=== PATIENT | male | born 1935 | race Caucasian/White ===

== ENCOUNTER 2018-06-11 11:52 | Inpatient (IN) | payer OTHER ==
[2018-06-11] MEDS ORDERED: NS 1,000 ML IV ONE (12:03)
--- NOTE | 2018-06-11 12:07 | EDPHY ---
H & P Time Seen by Provider: 06/11/18 11:56 HPI/ROS: CHIEF COMPLAINT: Left hip pain HISTORY OF PRESENT ILLNESS: The patient is an 82-year-old man who denies having a significant past medical history or taking any medications. EMS was called because he had fallen behind the fabric store. When they arrived they could not find him but fire department found him several blocks away holding onto a fence post. He is complaining of left hip pain. He states that he landed on his left hip. Paramedics state that he was A&O x3 initially but then had a brief episode of confusion. This provoked them to attain glucose an EKG. EKG was reassuring but his glucose was over 400. Patient denies any history of diabetes. He is now A& O x3 again and has no complaints other than left hip pain. He did not hit his head. He has no headache or neck pain. Severity: Moderate Modifying factors: None REVIEW OF SYSTEMS: Constitutional: denies: chills, fever, recent illness, recent injury EENTM: denies: blurred vision, double vision, nose congestion Respiratory: denies: cough, shortness of breath Cardiac: denies: chest pain, irregular heart rate, lightheadedness, palpitations Gastrointestinal/Abdominal: denies: abdominal pain, diarrhea, nausea, vomiting, blood streaked stools Genitourinary: denies: dysuria, frequency, hematuria, pain Musculoskeletal: See HPI Skin: denies: lesions, rash, jaundice, bruising Neurological: denies: headache, numbness, paresthesia, tingling, dizziness, weakness Hematologic/Lymphatic: denies: blood clots, easy bleeding, easy bruising Immunologic/allergic: denies: HIV/AIDS, transplant 10 systems reviewed and negative except as noted EXAM: GENERAL: Well-appearing, well-nourished and in no acute distress. HEAD: Atraumatic, normocephalic. EYES: Pupils equal round and reactive to light, extraocular movements intact, sclera anicteric, conjunctiva are normal. ENT: TMs normal, nares patent, oropharynx clear without exudates. Moist mucous membranes. NECK: Normal range of motion, supple without lymphadenopathy or JVD. LUNGS: Breath sounds clear to auscultation bilaterally and equal. No wheezes rales or rhonchi. HEART: Regular rate and rhythm without murmurs, rubs or gallops. ABDOMEN: Soft, nontender, normoactive bowel sounds. No guarding, no rebound. No masses appreciated. BACK: No CVA tenderness, no spinal tenderness, step-offs or deformities EXTREMITIES: Left hip pain, no pain while lying in bed or with passive range of motion but will not bear weight at all on the left hip. NEUROLOGICAL: Cranial nerves II through XII grossly intact. Normal speech, unable to walk due to left hip pain. 5/5 strength, normal movement in all extremities, normal sensation, normal reflexes PSYCH: Normal mood, normal affect. SKIN: He does have abrasions to his left knee but normal range of motion and no tenderness or swelling. Source: Patient, EMS Exam Limitations: Clinical condition - Medical/Surgical History Hx Asthma: No Hx Chronic Respiratory Disease: No Hx Diabetes: No Hx Cardiac Disease: No Hx Renal Disease: No Hx Cirrhosis: No Hx Alcoholism: No Hx HIV/AIDS: No Hx Splenectomy or Spleen Trauma: No - Family History Significant Family History: No pertinent family hx - Social History Smoking Status: Never smoked Alcohol Use: None Drug Use: None Constitutional: Initial Vital Signs Temperature (C) 37.2 C 06/11/18 11:52 Heart Rate 106 H 06/11/18 11:52 Respiratory Rate 16 06/11/18 11:52 Blood Pressure 180/105 H 06/11/18 11:52 O2 Sat (%) 95 06/11/18 11:52 O2 Delivery Mode Room Air Allergies/Adverse Reactions: No Known Allergies Allergy (Verified 06/11/18 13:14) Home Medications: Medication Instructions Recorded NK [No Known Home Meds] 06/11/18 Medical Decision Making - Diagnostics EKG Interpretation: An EKG obtained and was read and documented in trace view. Please see trace view for full reading and report. Sinus tachycardia, no acute ischemic changes Imaging: Discussed imaging studies w/ orthopedically impaired teacher Radiologist ED Course/Re-evaluation: Patient has left femoral neck fracture. He seems more confused now than he was on arrival but is still able to answer most questions appropriately. Does not have any focal deficits in his face arms or legs as far sensation or movement. Head CT unremarkable. I have paged hospitalist service for admission Orthopedics for consultation. 12:50 p.m. discussed the case with Dr. Wilkes who will admit. Agrees with insulin bolus and recheck. 1:10 p.m. Discussed the case with Dr. Herndon who will consult. He has not eaten since breakfast. 115 spoke again with the patient. He is having significant difficulty with word finding cannot name a pen or the phone. He occasionally mumbles or speaks with word salad. I have activated stroke alert and will have Errol Hamilton evaluate and obtain CT and CT angio. 1:[address] Bowser the neurologist [facility]. He is evaluating the patient. He states the patient is not a tPA candidate because of his hip fracture. Recommend CT angio. 9:20 p.m. Discussed the imaging results with Dr. Bowser from [facility]. He agrees with admission here and surgery. He recommends MRI at some point. Differential Diagnosis: Partial list of the Differential diagnosis considered include but were not limited to; hip fracture, hyperglycemia, altered mental status, CVA and although unlikely based on the history and physical exam, I also considered infection, acute coronary disease, seizure. - Data Points Laboratory Results: Laboratory Results 06/11/18 12:00 06/11/18 12:00 Medications Given: Aspirin (Aspirin) 81 mg PO DAILY [facility] Stop: 12/08/18 16:59 Last Admin: 06/12/18 12:44 Dose: 81 mg Atorvastatin Calcium (Lipitor) 40 mg PO DAILY [facility] Stop: 12/09/18 08:59 Last Admin: 06/12/18 12:44 Dose: 40 mg Sodium Chloride (Ns) 1,000 mls @ 75 mls/hr IV CONT [facility] Stop: 12/08/18 13:59 Last Admin: 06/11/18 21:55 Dose: 1,000 mls Insulin Human Regular (Humulin R) 0 unit SC Q6H [facility] PRN Reason: Protocol Stop: 12/08/18 15:14 Last Admin: 06/12/18 14:11 Dose: 3 units Discontinued Medications Bupivacaine HCl (Sensorcaine 0.5% Vial) Confirm Administered Dose 30 ml .ROUTE .STK-MED ONE Stop: 06/11/18 17:48 Last Admin: 06/11/18 20:09 Dose: Not Given Bupivacaine HCl (Sensorcaine 0.5% Vial) Confirm Administered Dose 30 ml .ROUTE .STK-MED ONE Stop: 06/12/18 11:31 Last Admin: 06/12/18 12:44 Dose: Not Given Epinephrine HCl (Epinephrine) Confirm Administered Dose 1 mg .ROUTE .STK-MED ONE Stop: 06/11/18 17:48 Last Admin: 06/11/18 20:09 Dose: Not Given Epinephrine HCl (Epinephrine) Confirm Administered Dose 1 mg .ROUTE .STK-MED ONE Stop: 06/12/18 11:31 Last Admin: 06/12/18 12:45 Dose: Not Given Sodium Chloride (Ns) 1,000 mls @ 0 mls/hr IV EDNOW ONE; Wide Open PRN Reason: Protocol Stop: 06/11/18 12:04 Last Admin: 06/11/18 12:06 Dose: 1,000 mls Lactated Ringer's (Lr) 1,000 mls @ 0 mls/hr IV ONCE ONE PRN Reason: Per Protocol Stop: 06/11/18 17:10 Last Admin: 06/11/18 20:10 Dose: Not Given Lactated Ringer's (Lr) 1,000 mls @ 0 mls/hr IV ONCE ONE PRN Reason: As Directed Stop: 06/12/18 10:41 Last Admin: 06/12/18 10:52 Dose: 1,000 mls Insulin Human Regular (Humulin R) 10 unit IVP EDNOW ONE Stop: 06/11/18 12:42 Last Admin: 06/11/18 12:50 Dose: 10 unit Point of Care Test Results: Chemistry 06/11/18 06/11/18 13:55 12:45 POC Glucose 242 mg/dL H mg/dL (70-100) POC Troponin I 0.00 ng/mL ng/mL (0.00-0.08) Departure - Departure Disposition: [facility] Inpatient Acute Clinical Impression: Hyperglycemia Fracture of left hip Qualifiers: Encounter type: initial encounter Fracture type: closed Qualified Code(s): S72.002A - Fracture of unspecified part of neck of left femur, initial encounter for closed fracture Condition: Fair
[2018-06-11 12:12] LABS: PLATELET COUNT 280 10^3/uL (150-400)
[2018-06-11] MEDS ORDERED: INSULIN REGULAR HUMAN 100 UNIT/ML UNIT IVP ONE (12:41)
--- NOTE | 2018-06-11 12:50 | CPEKG ---
Test Reason : OPEN Blood Pressure : / mmHG Vent. Rate : 110 BPM Atrial Rate : 110 BPM P-R Int : 210 ms QRS Dur : 085 ms QT Int : 319 ms P-R-T Axes : 047 -66 024 degrees QTc Int : 432 ms Sinus tachycardia Borderline prolonged MA interval Confirmed by Jimmie Ward ([id number]) on 06/11/2018 12:49:46 PM Referred By: Jimmie Ward Confirmed By:Jimmie Ward
[2018-06-11] MEDS ORDERED: IOPAMIDOL (ISOVUE-370) 150 ML BTL IV ONE (13:16)
[2018-06-11 13:32] LABS: INR 1.02 (0.83-1.16)
[2018-06-11] MEDS ORDERED: ONDANSETRON 4 MG/2 ML VIAL IVP PRN (13:57)
[2018-06-11] MEDS ORDERED: HYDROCODONE/APAP 5/325 TAB PO PRN (13:57)
[2018-06-11] MEDS ORDERED: D50W 25 GM/50 ML SYR IVP PRN (15:06)
--- NOTE | 2018-06-11 15:48 | WOCRNPDOC ---
WOCRN Advanced Assessment Note - Skin Integrity Problem, Advanced Assess Right Knee Unknown Dressing Type: Open to Air Alessia Wound Tissue: Dry Wound Bed Constitution: Scab, Healed Site Measurement - Head-to-Toe Length X Width X Depth (cm): [id number] scab Skin Integrity Problem Comment: Old wound with thick scab partially seperating from underlying healed epithelium. Will reccommend to soften with wound gel and cover to protect. Damari CROCKER and LAURA Woodruff in room. Wound care will sign off.
[2018-06-11] MEDS: INSULIN REGULAR HUMAN 100 UNIT/ML UNIT SC SCH ×2 (16:38→21:45)
--- NOTE | 2018-06-11 16:55 | GHP ---
[f rep st] HISTORY AND PHYSICAL DATE OF ADMISSION: 06/11/2018 CHIEF COMPLAINT: Fall and left femoral neck fracture. HISTORY OF PRESENT ILLNESS: The patient is an 82-year-old gentleman with no known past medical histo ry, who presented to the [facility] Emergency Room on 06/11/2018, after EMS had been activated to evaluate him after he fell behind a local fabrics store. When brought to the emergency room, he had an x-ray which showed evidence of a left hip fracture. Orthopedic Surgery was consulted . While in the emergency room, he developed difficulty with word finding and word salad. A stroke a lert was activated and [facility] consulted. He had a CT scan of his head and CT angiography of the head and neck performed. These did not show any evidence of an acute stroke or hemorrhage. TPA was not administered, as he was not felt to be a candidate secondary to his hip fracture. PAST MEDICAL HISTORY: No known past medical history. PAST SURGICAL HISTORY: No known prior surgeries. MEDICATIONS: No known current medications. ALLERGIES: No known drug allergies. FAMILY HISTORY: The patient states his mother and father are both and states that they of old age. SOCIAL HISTORY: The patient is apparently single. He tells me that he has never been and swanson s no children. He is a nonsmoker and apparently lives alone. REVIEW OF SYSTEMS: An accurate review of systems is unable to be obtained from patient considering n eurologic changes. PHYSICAL EXAM: VITAL SIGNS: Temperature 37.2, blood pressure 174/85, heart rate 102, respirations 1 6, satting 94% on room air. GENERAL: The patient appears comfortable without any significant pain. He does not appear chronically ill. HEENT: Left gaze preference. No scleral icterus appreciated. Dry mucous membranes. NECK: Supple. No bruit noted. CHEST: Clear to auscultation with normal re spiratory effort. No productive cough noted. HEART: Systolic ejection murmur right upper sternal b order; regular otherwise. ABDOMEN: Soft, nontender, nondistended. : No Pinon catheter in place. EXTREMITIES: No significant edema noted. NEUROLOGIC: I suspect he has a mild right facial droop with left gaze preference. Right upper extremity strength 5/5 and seems equal as compared to the lef t. Difficult to assess lower extremity strength secondary to fracture on the left, but he does have good movement of his right lower extremity. I would describe his speech as word salad with occasiona l clear sentences spoken. LABS: White blood cell count 11, hemoglobin 14, platelets 280. Sodium 132, potassium 4.3, chloride 96, bicarb 19, BUN 18, creatinine of 0.8, glucose 482, calcium 9.8. Troponin 0.00. IMAGING: Left hip x-ray, displaced impacted left femoral neck fracture. CT scan head, no acute intr acranial findings. CT, moderate 60% to 70% focal stenosis of the proximal right internal carotid artery, 1.6 cm right th yroid nodule noted. ASSESSMENT AND PLAN: Left femoral neck fracture: Orthopedic Surgery has been consulted on the case. In regard to proceeding to the operating room, his ECG shows sinus tachycardia at a rate of 110 sarwat ts per minute. His hemoglobin and creatinine are within normal limits. I recommend and have ordered an MRI of his brain, as he certainly has neurologic findings which could be suggestive of an acute s troke. Left hip pain. This appears well controlled at the current time without any significant movement. Cerebrovascular accident. Possibly acute cerebrovascular accident [facility] has consulted o n the patient's case in the emergency room and not felt to be a tPA candidate secondary to his acute hip fracture. Await MRI report for further clarification and likely Neurology consult. Carotid artery stenosis, 60% to 70% stenosis of the proximal left internal carotid artery. We will s tart aspirin and statin therapy. This may need further intervention pending MRI results. Thyroid nodule. I think this workup can be deferred to the outpatient setting. Leukocytosis, likely reactive. Monitor for fevers. No antibiotic therapy at this time. Elevated glucose. Obtain hemoglobin A1c to assess for evidence of glucose intolerance or type 2 diab etes. Deep venous thrombosis prophylaxis. We will plan on Lovenox, but we will not start until MRI has bee n completed and plan for surgery has been confirmed. DISPOSITION: I anticipate patient will likely need jail placement once ready for hospital discharge. I will admit the patient under inpatient status. /[id number]/MODL
[2018-06-11] MEDS ORDERED: LR 1,000 ML IV ONE (17:09)
[2018-06-11] MEDS ORDERED: EPINEPHrine 1 MG/ML INJ ONE (17:47)
[2018-06-11] MEDS ORDERED: BUPIVACAINE 0.5% 30 ML SDV ONE (17:47)
[2018-06-11] MEDS: ASPIRIN 81 MG CHEWABLE TAB PO SCH (20:09)
[2018-06-11] MEDS: NS 1,000 ML IV SCH (21:55)
--- NOTE | 2018-06-11 22:03 | PDMN ---
Medical Necessity Medical necessity: Pt meets inpt criteria per MD order and Musculoskeletal Disease GRG. 82 y/o s/p fall admitted w/displaced impacted L femoral neck fx, in ED pt developed difficulty w/word finding/word salad, stroke alert activated and neurology consulted, CT did not show evidence of acute stoke or hemorrhage. Ortho consulted and following, MRI brain pending, neuro following, Anticipate > 2MN for ongoing eval/management of above.
[2018-06-12 05:05] LABS: PLATELET COUNT 216 10^3/uL (150-400)
[2018-06-12] MEDS: INSULIN REGULAR HUMAN 100 UNIT/ML UNIT SC SCH ×5 (05:47→21:21)
--- NOTE | 2018-06-12 10:27 | GCON ---
[f rep st] CONSULTATION DATE OF CONSULTATION: 06/11/2018 REASON FOR CONSULTATION: Left hip pain. HISTORY OF PRESENT ILLNESS: The patient is an 82-year-old limited community ambulator who sustained a fall, landing on his left hip. He noted left hip pain with difficulty ambulating. He denies any p revious problems or injuries relative to his hip. EXAMINATION: MUSCULOSKELETAL: He holds his hip in a slightly flexed outwardly rotated position. He has mild limb length discrepancy. Gentle motion of the hip produces pain in the groin region. His distal neurovascular exam is grossly intact. IMAGING: Radiographs of his hip show evidence of a displaced left femoral neck fracture. IMPRESSION: Left femoral neck fracture. PLAN: Based on the nature of his injury, it was recommended that operative treatment consisting of i mplant hemiarthroplasty be pursued. The operation will be performed pending medical clearance. /[id number]/MODL
[2018-06-12] MEDS ORDERED: LR 1,000 ML IV ONE (10:40)
[2018-06-12] MEDS ORDERED: EPINEPHrine 1 MG/ML INJ ONE (11:30)
[2018-06-12] MEDS ORDERED: BUPIVACAINE 0.5% 30 ML SDV ONE (11:30)
[2018-06-12] MEDS: ASPIRIN 81 MG CHEWABLE TAB PO SCH (12:44)
[2018-06-12] MEDS: ATORVASTATIN CALCIUM 40 MG TAB PO SCH (12:44)
--- NOTE | 2018-06-12 13:53 | GCON ---
[f rep st] CONSULTATION NEUROLOGIC CONSULTATION REFERRING PHYSICIAN: Alex Castro MD The patient is an 82-year-old gentleman who I am seeing in neurologic consultation regarding acute st roke. 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 He had reportedly gone in and left the keys in the door and either fell there or fell outside, and that is not entirely clear, but 911 was called when the employees recognized something was not right. He reportedly then was grabbi ng onto a pole to keep his balance and had fallen and fractured the left hip and was also noted to swanson ve some left gaze preference and some right-side weakness and a little bit of confusion. He had a he ad CT and stroke alert, with CTA of the head and neck and was found to have estimated 60% to 70% sten osis of the left internal carotid artery, but no large vessel occlusions. Because of the acute hip f racture, he was not felt to be a tPA candidate. Brain MRI confirms ischemia in left middle cerebral and left posterior MCA, LOOM STARTER watershed territory. He does need to have the hip fracture operated on, but I asked them to put that on hold until he has a chance to stabilize for at least a day or so. The patient does not really give a reliable history about exactly what happened. He knows he had ventura e to the store, but his details are incorrect. He has never had similar episodes before. He is deny ing focal numbness. He says he is not currently in any pain as long as he does not move the left hip significantly. From a medical standpoint otherwise, he is not known to have specific disorder. ALLERGIES: None. FAMILY HISTORY: Unknown. SOCIAL HISTORY: He apparently lives here, and there are family members out of state, but no first-de gree relatives except sisters apparently. No children and no spouse in his life. No smoking. We do not know of any alcohol abuse. REVIEW OF SYSTEMS: The 10-point review of systems unremarkable except for that noted above. PHYSICAL EXAM: VITAL SIGNS: Blood pressure is 143/83, pulse of 85, respirations 16, temperature 37. 3. GENERAL: Well developed, no acute distress. NECK: Supple. No bruits or masses. CARDIAC: Reg ular rate and rhythm. No murmur. NEUROLOGIC: Awake, alert, attentive. He is oriented to the month but had trouble coming up with the year. He knows he is in [place], [place]. He has a slightly pe culiar affect and tries to make jokes. He can generally name objects but a couple of times made para phasic errors such as calling initially my watch a clock. He can spell and perform simple calculatio ns. Pupils 3 mm and reactive. I do not detect any visual field loss. There is no gaze preference a t this point. Normal facial sensation and strength. Palate elevates symmetrically. Tongue protrude s midline. Motor: Normal muscle bulk and tone, with 5/5 strength. I cannot test the left leg relia patricia because that is where the fracture is. Distal strength is preserved. Sensation is intact for te mperature and light touch. Reflexes 2+. DIAGNOSTIC IMAGING: As outlined. LABORATORY STUDIES: Showed a glucose today of 209. It was 42 when he came in. He is not known to b e diabetic, but he has had consistently high blood sugars since coming in the hospital. The bicarbon ate when he came in was 17, currently 25. Otherwise normal electrolytes. The LDL cholesterol is cur rently at 85. INR normal. The NIH Stroke Scale currently would be listed as a 1 for mild expressive language problem. IMPRESSION: Today's total unit time 70 minutes. The patient has experienced a left middle cerebral/ middle cerebral territory watershed infarct related to significant left carotid stenosis which is sym ptomatic. As a result, he needs to be stable over the next 24-48 hours before I would recommend mehran crockett the treatment of the left hip fracture. He can take aspirin for now, and Orthopedics can guide us on the timing for stopping aspirin prior to his surgery. I will consult with Dr. Terrence Krueger as t his carotid should be treated with endarterectomy, ideally in about the next 2 weeks. There is not a definitive answer on safety of surgery in a case like this, but this degree of stenosis that is mode rate as opposed to severe probably does not give an undue risk of stroke in the setting of routine an esthesia. We can confer on that further. Statin therapy is indicated for secondary stroke prophylax is although his LDL is less than 100. We can initiate that prior to discharge from the hospital. He should also have echocardiogram. Continue to monitor his neurologic status for any changes. The tunde farrell will definitely need rehab care once his hip fracture is treated and further monitoring of stro ke deficits. /[id number]/MODL
--- NOTE | 2018-06-12 15:52 | ECHO ---
[email or web address] [address] [address] Main: [phone] Echocardiography Examination Transthoracic Name: JOSE L SHELTON MR#: [id number] Study Date: 06/12/2018 Study Time: 01:16 PM Date of : 1935 Age: 82 year(s) Height: 175.3 cm (69 in.) Weight: 72.58 kg (160 lb.) BSA: 1.88 m2 Gender: Male Examination: Echo Contrast: Image Quality: Fair Rhythm: Heart Rate: BP: 143 mmHg/83 mmHg Indication: CVA/fractured left hip Procedure Staff Referring Physician: Health Physics Technician: Yarely De Souza RDCS Reading Physician: Lucas Guerrero MD Requesting Provider: Indication: CVA/fractured left hip Measurements Chambers AV/MV Label Value Normal Value Label Value Normal Value EF lower range (%) 65 % AV PGmean 3 mmHg EF upper range (%) 70 % AV Vmax 1.1 m/s IVSd, 2D 0.6 cm (0.6cm - 1.1cm) MV A Vmax 1.07 m/s LVDd, 2D 5 cm (4.2cm - 5.9cm) MV E' lateral 0.07 m/s LVDs, 2D 2.5 cm (2.1cm - 4cm) MV E' mean 0.06 m/s LVEF, 2D 81 % (54% - 74%) MV E' septal 0.06 m/s LVEF, BP 63 % (55% - 70%) MV E Vmax 0.78 m/s LVPWd, 2D 0.8 cm (0.6cm - 1cm) MV E/A 0.73 LA Volume, BP 28 ml (18ml - 58ml) MV E/E' lateral 11.8 LADs, 2D 2.9 cm (3cm - 4cm) MV E/E' mean 12 LAESV index, BP 14.9 ml/m2 MV E/E' septal 12.5 (0.45 - 1.25) Additional Vessels TV/PV Label Value Normal Value Label Value Normal Value AoAsc 3.4 cm RA Pressure 5 mmHg AoRoot, MM 3.4 cm (2.2cm - 3.7cm) RVSP 27 mmHg TR Pmax 22 mmHg TR Vmax 2.33 m/s Conclusions Patient: JOSE L SHELTON Study Date: 06/12/2018 Page 1 of 2 01:16 PM Overall Conclusions: No pericardial effusion. Preserved LV systolic function with ejection fraction between 65 and 70%. Mild concentric left ventricular hypertrophy. Mild mitral annular calcification with mild mitral regurgitation. Trileaflet aortic valve. Mild tricuspid regurgitation with right ventricular systolic pressure 27 mm of mercury. Findings Left Ventricle: Left ventricle is normal in size. Normal global systolic left ventricular function. The ejection fraction, measured by Simpsons method, is 63 %. EF range is estimated at 65 % - 70 %. There is mild concentric left ventricular hypertrophy. There are no regional wall motion abnormalities. Left ventricular diastolic function parameters are normal. IVS: The septum is intact. Right Ventricle: Normal size right ventricle. Right ventricular wall thickness is normal. Right ventricular systolic function is normal. Left Atrium: The left atrium is normal in size. IAS: Normal appearing atrial septum. Right Atrium: The right atrium is normal in size. Mitral Valve: Mild mitral annular calcification.. Trivial to mild mitral regurgitation. No mitral valve stenosis. Aortic Valve: Aortic leaflets exhibit normal cuspal separation. No aortic valve regurgitation. There is no aortic stenosis. The aortic valve is trileaflet. Tricuspid Valve: Tricuspid valve leaflets are normal in appearance and function. Mild tricuspid regurgitation. No tricuspid valve stenosis. Right Ventricular systolic pressure is measured at 27 mmHg. Pulmonary artery pressure normal. Pulmonic Valve: Pulmonic leaflets exhibit normal cuspal separation. No pulmonic valve regurgitation is evident. There is no pulmonic valve stenosis. Aorta: The aorta is normal. The aortic root size in M-mode measures 3.4 cm. The ascending aorta measures 3.4 cm. Aorta Measurements AoRoot, MM is 3.4 cm. Pulmonary Artery: The pulmonary artery morphology appears normal. Pericardium: No pericardial effusion. No pleural effusion present. Exam Details Procedure Ordered: Echo Procedure Status: Routine study Image Quality: Fair Facility Location: Cardiac Echo 1 (No Signature Object) Patient: JOSE L SHELTON Study Date: 06/12/2018 Page 2 of 2 01:16 PM [id number]
--- NOTE | 2018-06-12 16:20 | HOSPPROG ---
Hospitalist Progress Note Assessment/Plan: Subjective Follow-up on left hip fracture and acute left-sided MCA CVA. On MRI late last evening patient was found to have evidence of an acute CVA in the left MCA territory. CT angiography of the neck also revealed a 60 the 70% stenosis. Case was reviewed today with Dr. Ron as well as anesthesiology and Dr. Herndon. Ultimately it was decided to delay his hip surgery in light of the acute findings until . Clinically the patient did well overnight. His neurologic findings from yesterday including left gaze preference and word salad appear to have resolved. I did talk with his sister, Yelena, who lives in [place] and updated her on the current plan. Objective Vital signs as detailed below Exam General-awake alert conversant no acute distress Heart-regular rate and rhythm no murmurs Lungs-Clear to auscultation with normal respiratory effort Abdomen-soft nontender nondistended normal bowel sounds -no Pinon catheter in place Extremities-no significant pitting edema or calf pain with palpation Skin-he has a chronic appearing sebaceous cyst like lesion as his lower sternum Neuro-diminished facial droop of the right as compared to yesterday's exam, speech is fluent without any word salad as noted yesterday, patient engages eye contact with me which he did not do yesterday showing a left gaze preference. I suspect he might have a little less strength and right upper extremity as compared to the left but not significant. Strength of right lower extremity appears normal. Left leg not tested in light of fracture. Labs as detailed below Assessment and plan CVA-acute. Left MCA distribution. Tele neurology was consulted in the emergency room patient was not felt to be a tPA candidate secondary to concurrent left hip fracture. Dr. Ron has consulted on the case today as well. Aspirin and statin therapy started. The left-sided carotid artery stenosis discussed with Dr. Ron today and he will correspond with Dr. Krueger to discuss further. Left hip fracture-I talked with anesthesia as well as Dr. Herndon today and recommended that we plan on for surgery. Dr. Herndon stated that he will pass the case over to his partner, Dr. Naik. Left hip pain-pain appears well controlled with current regimen and place. Patient does not appear to be having any pain as long as he does not move. Carotid artery [id number]-[id number]. Estimated at 60-70%. Thyroid nodule-I would recommend working this up as an outpatient after hospital discharge. Leukocytosis-mild. Potentially stress response. Monitor for any fevers. Elevated glucose-likely type 2 diabetic that has been undiagnosed. Hemoglobin A1c currently pending. Continue with sliding scale insulin for now. DVT prophylaxis-Lovenox. Disposition-we will need to see how he does with physical therapy and occupational therapy a after his surgery in determining safe place of discharge. His sister states that he has lived in [place] for many years. He is not and has no children. She does not believe that he has had any medical attention here in town. She does not believe he has a physician here either. Objective: Vital Signs Temp Pulse Resp BP Pulse Ox 36.7 C 82 14 136/78 H 94 06/12/18 15:29 06/12/18 15:29 06/12/18 15:29 06/12/18 15:29 06/12/18 15:29 Laboratory Results 06/12/18 04:39 06/12/18 04:39 06/11/18 06/12/18 06/13/18 05:59 05:59 05:59 Intake Total 200 Output Total 350 1125 Balance -150 -1125 PT 13.0 SEC (12.0-15.0) 06/11/18 12:00 INR 1.02 (0.83-1.16) 06/11/18 12:00 ICD10 Worksheet Patient Problems: Problems Problem Status Onset Carotid stenosis, left Acute Fracture of left hip Acute Hyperglycemia 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
--- NOTE | 2018-06-12 16:22 | ASMTCMCOM ---
CM Note CM Note Notes: Pt was found down in [place], has hip fx. Pt came in very confused, pt current 1:1 with sitter, OT/PT recs pending. 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 FC was able to find out pt has Medicare. Nursing note lists pt sister's contact information, they both reside out of state. CM to follow pt for d/c planning. Date Signed: 06/12/2018 04:22 PM Electronically Signed By:LILIYA Willis
--- NOTE | 2018-06-12 18:44 | GCON ---
[f rep st] CONSULTATION DATE OF CONSULTATION: 06/12/2018 HISTORY OF PRESENT ILLNESS: Patient is an 82-year-old male who was admitted after a mild stroke caus ing him to fall and break his left hip. He is under evaluation for a left hip ORIF. MRI of his brai n shows a small acute infarct. CTA reveals a 70% stenosis of the left carotid artery. The right car otid artery was quite patent. I was consulted for evaluation for carotid endarterectomy. Risks and options have been fully discussed. The patient is recovering well from his stroke and has no residua l muscular weakness or problems, except as related to his hip fracture. ALLERGIES: None. FAMILY HISTORY: Noncontributory. SOCIAL HISTORY: Reveals he does not smoke. He does appear to live alone. PAST MEDICAL HISTORY: Denied any major past medical history or surgeries. REVIEW OF SYSTEMS: Negative on a full 10-point review, except as related to the HPI. PHYSICAL EXAM: GENERAL: Reveals an alert, cooperative 82-year-old male in no acute distress. HEAD/ NECK: Reveals no icterus. No adenopathy. No oral lesions. EYES: PERRLA, EOMs are intact. NECK: Supple. Full range of motion, nontender. He has a left carotid bruit. No significant adenopathy. CHEST: Clear. CARDIAC: Regular rhythm. ABDOMEN: Soft, nontender, without masses, organomegaly, or bruits. EXTREMITIES: Benign with full range of motion, full pulses. NEUROLOGIC: Physiologic and symmetric except as related to his left hip fracture. PSYCH: Reveals him to be alert, oriented, an d cooperative. IMPRESSIONS: Critical left carotid stenosis with recent cerebrovascular accident. RECOMMENDATIONS: Would proceed with hip fracture repair and plan elective carotid endarterectomy in the next 1 to 3 weeks depending on his recovery. In the meantime, I would keep him on Lipitor and a baby aspirin. The risks and options have been fully discussed, and he wishes to proceed. /[id number]/MODL
[2018-06-13 05:14] LABS: PLATELET COUNT 201 10^3/uL (150-400)
[2018-06-13] MEDS: ATORVASTATIN CALCIUM 40 MG TAB PO SCH (08:28)
[2018-06-13] MEDS: INSULIN REGULAR HUMAN 100 UNIT/ML UNIT SC SCH ×4 (08:28→21:49)
[2018-06-13] MEDS: ASPIRIN 81 MG CHEWABLE TAB PO SCH (08:28)
--- NOTE | 2018-06-13 08:44 | HOSPPROG ---
Hospitalist Progress Note Assessment/Plan: Mr Dugan is an 82 yo male who presented after falling and sustaining a hip fx. while in the ER he developed difficulty w word finding and word salad. [facility] was called, and not TPA was ordered due to his hip fx. Reviewed his care W Dr Ron. First encounter, chart reviewed. *CVA-acute. Left MCA distribution -asa and statin -tele has been in sinus *Left hip fracture -surgery *Left hip pain -well managed *Carotid artery pauxpbol-znlt-bzoig, 70% -reviewed Dr Krueger note, surgery in a few weeks after patient recovers from hip surgery *Thyroid nodule -needs further evaluation in the OP setting- *newly diagnosed DM -A1c is 11 -on sliding scale -added Lantus * mild Leukocytosis-mild -stress response *plan: surgery tomorrow, Karlos is very hopeful and positive about surgery. Will need to be closely monitored after surgery. Subjective: Karlos said he feels fine. No c/o chest pain. Objective: Vital Signs Temp Pulse Resp BP Pulse Ox 36.9 C 90 18 130/69 H 92 06/13/18 07:28 06/13/18 07:28 06/13/18 07:28 06/13/18 07:28 06/13/18 07:28 Laboratory Results 06/13/18 04:54 06/13/18 04:54 06/12/18 06/13/18 06/14/18 05:59 05:59 05:59 Intake Total 200 840 Output Total 350 1575 Balance -150 -735 PT 13.0 SEC (12.0-15.0) 06/11/18 12:00 INR 1.02 (0.83-1.16) 06/11/18 12:00 - Physical Exam Constitutional: no apparent distress, appears nourished, not in pain Eyes: PERRL Ears, Nose, Mouth, Throat: hearing normal Cardiovascular: regular rate and rhythym, systolic murmur Respiratory: no respiratory distress Skin: warm Musculoskeletal: other (left leg shortened and internally rotated) Neurologic: AAOx3, sensation intact bilaterally, No numbness, No facial droop Psychiatric: interacting appropriately ICD10 Worksheet Patient Problems: Problems Problem Status Onset Carotid stenosis, left Acute Fracture of left hip Acute Hyperglycemia 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
--- NOTE | 2018-06-13 14:12 | SOAPPROG ---
SOARPIT Progress Note Assessment/Plan: 82 yo female w/ left femoral neck fracture, to undergo left hip hemiarthroplasty on 06/14/[address] haider -no change in restrictions -nwb lle -npo at midnight for right hip hemiarthroplsty by -management per medical team (primary) - Subjective: denies any issues, reports pain is well controlled on meds, waiting for surgery , denies any problems voiding/moving bowels denies fevers/chills Objective: Vital Signs Temp Pulse Resp BP Pulse Ox 36.2 C 93 16 134/88 H 95 06/13/18 11:33 06/13/18 11:33 06/13/18 11:33 06/13/18 11:33 06/13/18 11:33 Laboratory Results 06/13/18 04:54 06/13/18 04:54 06/12/18 06/13/18 06/14/18 05:59 05:59 05:59 Intake Total 200 840 500 Output Total 350 1575 300 Balance -150 -735 200 PT 13.0 SEC (12.0-15.0) 06/11/18 12:00 INR 1.02 (0.83-1.16) 06/11/18 12:00 ICD10 Worksheet Patient Problems: Problems Problem Status Onset Carotid stenosis, left Acute Fracture of left hip Acute Hyperglycemia 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
[2018-06-13] MEDS: INSULIN GLARGINE 100 UNITS/ML UNIT SC SCH (22:29)
[2018-06-14] MEDS ORDERED: POVIDONE-IODINE 20 ML in SODIUM CL IRRIG SOLUTION 500 ML IRR ONE (06:59)
[2018-06-14] MEDS ORDERED: ROPIVACAINE 0.2% 80 MG, EPINEPHrine 0.2 MG, KETOROLAC TROMETHAMINE 30 MG in SYRINGE 0 ML IU ONE (06:59)
[2018-06-14] MEDS ORDERED: FAMOTIDINE 20 MG TAB PO ONE (06:59)
[2018-06-14] MEDS ORDERED: ceFAZolin 2 GM/DEXTROSE 100 ML IV ONE (06:59)
[2018-06-14] MEDS ORDERED: TRANEXAMIC ACID 3,000 MG in NS (SYRINGE) 50 ML IRR ONE (06:59)
[2018-06-14] MEDS: INSULIN REGULAR HUMAN 100 UNIT/ML UNIT SC SCH ×4 (08:30→21:14)
--- NOTE | 2018-06-14 09:17 | CPEKG ---
Test Reason : Blood Pressure : / mmHG Vent. Rate : 107 BPM Atrial Rate : 107 BPM P-R Int : 208 ms QRS Dur : 094 ms QT Int : 336 ms P-R-T Axes : 056 -53 034 degrees QTc Int : 449 ms Sinus tachycardia Borderline prolonged AL interval Probable left atrial enlargement Left anterior fascicular block Confirmed by Ladarius York ([id number]) on 06/14/2018 9:16:42 AM Referred By: Laci Wilkes Confirmed By:Ladarius York
--- NOTE | 2018-06-14 09:20 | HOSPPROG ---
Hospitalist Progress Note Assessment/Plan: Mr Dugan is an 82 yo male who presented after falling and sustaining a hip fx. while in the ER he developed difficulty w word finding and word salad. [facility] was called, and not TPA was ordered due to his hip fx. *CVA-acute. Left MCA distribution -asa and statin -tele has been in sinus *Left hip fracture -surgery today -will add fluids since NPO *Left hip pain -well managed *Carotid artery qcxucqsg-uipo-apkjv, 70% -reviewed Dr Krueger note, surgery in a few weeks after patient recovers from hip surgery *Thyroid nodule -needs further evaluation in the OP setting- *newly diagnosed DM -A1c is 11 -on sliding scale -added Lantus * mild Leukocytosis-mild -stress response *plan: surgery today, repeat labs in a.m. Subjective: Karlos is feeling well, no c/o pain, feels ready for surgery Objective: Vital Signs Temp Pulse Resp BP Pulse Ox 36.8 C 90 12 110/65 95 06/14/18 07:31 06/14/18 07:31 06/14/18 07:31 06/14/18 07:31 06/14/18 07:31 Laboratory Results 06/13/18 04:54 06/13/18 04:54 06/13/18 06/14/18 06/15/18 05:59 05:59 05:59 Intake Total 840 500 Output Total 1575 1425 Balance -735 -925 PT 13.0 SEC (12.0-15.0) 06/11/18 12:00 INR 1.02 (0.83-1.16) 06/11/18 12:00 - Physical Exam Constitutional: no apparent distress, appears nourished Eyes: PERRL Ears, Nose, Mouth, Throat: hearing normal Cardiovascular: regular rate and rhythym Respiratory: no respiratory distress Gastrointestinal: normoactive bowel sounds Skin: warm Musculoskeletal: other (left leg straightened out and he is lying on his right side) Neurologic: AAOx3 Psychiatric: interacting appropriately ICD10 Worksheet Patient Problems: Problems Problem Status Onset Carotid stenosis, left Acute Fracture of left hip Acute Hyperglycemia 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
[2018-06-14] MEDS ORDERED: LR 1,000 ML IV SCH (09:30)
[2018-06-14] MEDS: ATORVASTATIN CALCIUM 40 MG TAB PO SCH (10:55)
[2018-06-14] MEDS: NS 1,000 ML IV SCH (10:56)
[2018-06-14] MEDS: ASPIRIN 81 MG CHEWABLE TAB PO SCH (11:37)
--- NOTE | 2018-06-14 12:44 | PDANEPAE ---
ANE Past Medical History - Cardiovascular History Hx Hypertension: No Hx Arrhythmias: No Hx Chest Pain: No Hx Coronary Artery / Peripheral Vascular Disease: No Hx CHF / Valvular Disease: No Hx Palpitations: No - Pulmonary History Hx COPD: No Hx Asthma/Reactive Airway Disease: No Hx Recent Upper Respiratory Infection: No Hx Oxygen in Use at Home: No Hx Sleep Apnea: No Sleep Apnea Screening Result - Last Documented: Positive - Neurologic History Hx Cerebrovascular Accident: Yes Hx Seizures: No Hx Dementia: No Neurologic History Comment: CVA vs TIA/RIND - Endocrine History Hx Diabetes: Yes Hypothyroid: No Hyperthyroid: No Obesity: no - Renal History Hx Renal Disorders: No - GI History GERD: no Hx Gastrointestinal Disorders: No - Other Health History Other Health History: chest wall abscess ANE Review of Systems Review of Systems: - Exercise capacity Exercise capacity: >=4 METS ANE Patient History - Allergies Allergies/Adverse Reactions: No Known Allergies Allergy (Verified 06/11/18 13:14) - Home Medications Home Medications: NK [No Known Home Meds] 06/11/18 [Last Taken Unknown] - NPO status NPO Since - Liquids (Date): 06/14/18 NPO Since - Liquids (Time): 10:45 NPO Since - Solids (Date): 06/13/18 NPO Since - Solids (Time): 10:55 - Anes Hx Anes Hx: no prior problems - Smoking Hx Smoking Status: Never smoked - Alcohol Use Alcohol Use: None - Family Anes Hx Family Anes Hx: neg - N/A ANE Labs/Vital Signs - Labs Result Diagrams: 06/13/18 04:54 06/13/18 04:54 - Vital Signs Blood Pressure: 113/66 Heart Rate: 87 Respiratory Rate: 15 O2 Sat (%): 100 Height: 175.26 cm Weight: 72.575 kg ANE Physical Exam - Airway Neck exam: FROM Mallampati Score: Class 2 Mouth exam: normal dental/mouth exam - Pulmonary Pulmonary: no respiratory distress, no rales or rhonchi, clear to auscultation - Cardiovascular Cardiovascular: regular rate and rhythym, no murmur, rub, or gallop - ASA Status ASA Status: III ANE Anesthesia Plan Anesthesia Plan: MAC, spinal Total IV Anesthesia: No
[2018-06-14] MEDS ORDERED: LR 1,000 ML IV ONE (13:31)
[2018-06-14] MEDS ORDERED: BUPIVACAINE/EPI 0.5% 30 ML SDV ONE (13:33)
[2018-06-14] MEDS ORDERED: BUPIVACAINE 0.5% 30 ML SDV ONE ×2 (13:33→13:49)
[2018-06-14] MEDS ORDERED: POLYMYXIN B SULFATE 500,000 UNIT/10 ML SYR IRR ONE (13:34)
[2018-06-14] MEDS ORDERED: BACITRACIN 50,000 UNITS/10 ML SYR IRR ONE (13:34)
[2018-06-14] MEDS ORDERED: CEFAZOLIN 2 GM/DEXTROSE/100 ML BAG IV ONE (13:37)
[2018-06-14] MEDS ORDERED: FAMOTIDINE 20 MG TAB ONE (13:37)
[2018-06-14] MEDS ORDERED: PROPOFOL/EMULSION 500 MG/50 ML BOTTLE IV ONE (13:47)
[2018-06-14] MEDS ORDERED: fentaNYL 100 MCG/2 ML INJ ONE (13:47)
[2018-06-14] MEDS ORDERED: PHENYLEPHRINE HCL 100 MCG/ML SYR ONE (14:26)
[2018-06-14] MEDS ORDERED: ACETAMINOPHEN 500 MG TAB PO PRN (15:05)
[2018-06-14] MEDS ORDERED: ONDANSETRON 4 MG/2 ML VIAL IVP PRN (15:05)
[2018-06-14] MEDS ORDERED: NALOXONE HCL 0.4 MG/ML INJ IVP PRN (15:05)
[2018-06-14] MEDS ORDERED: HYDROCODONE/APAP 5/325 TAB PO PRN (15:05)
[2018-06-14] MEDS ORDERED: LR 500 ML IV PRN (15:05)
[2018-06-14] MEDS ORDERED: PHENYLEPHRINE HCL 100 MCG/ML SYR IVP PRN (15:05)
[2018-06-14] MEDS ORDERED: PROMETHAZINE HCL 25 MG/ML INJ IVP PRN (15:05)
--- NOTE | 2018-06-14 15:36 | POSTANESTH ---
Post Anesthetic Evaluation Cardiovascular Status: Normal, Stable Respiratory Status: Normal, Stable Level of Consciousness/Mental Status: Can Participate in Eval Pain Control: Adequate, Prn Tx Ordered Nausea/Vomiting Control: Adequate, Prn Tx Ordered Complications Possibly Related to Anesthesia: None Noted
--- NOTE | 2018-06-14 16:54 | ASMTCMCOM ---
CM Note CM Note Notes: Pt had surgery today, PT/OT evals pending, CM will follow. DC Plan: TBD Date Signed: 06/14/2018 04:53 PM Electronically Signed By:Parvin Beck RN
--- NOTE | 2018-06-14 17:09 | SOAPPROG ---
PRINCESS Progress Note Assessment/Plan: Assessment: DOING WELL TODAY FROM A NEUROLOGIC STANDPOINT. AGAIN DISCUSSED RISKS AND OPTIONS OF A CAROTID ENDARTERECTOMY IN 1-2 WEEKS ORIF OF HIS HIP PENDING TODAY HEENT NONICTERIC, PERRLA, EOMS INTACT CHEST CLEAR COR REGULAR RHYTHM ABDOMEN SOFT NONTENDER EXTREMITIES FULL RANGE OF MOTION FULL PULSES EXCEPT FOR HIS HIP FRACTURE NEURO EXAM PHYSIOLOGIC AND SYMMETRIC WITH CRANIAL NERVES INTACT Plan: PLAN CAROTID ENDARTERECTOMY IN 1-2 WEEKS DEPENDING ON HIS RECOVERY FROM HIP SURGERY 06/14/18 17:07 Objective: Vital Signs Temp Pulse Resp BP Pulse Ox 36.4 C 69 18 90/52 L 100 06/14/18 16:00 06/14/18 16:02 06/14/18 16:02 06/14/18 16:02 06/14/18 16:02 Laboratory Results 06/13/18 04:54 06/13/18 04:54 06/13/18 06/14/18 06/15/18 05:59 05:59 05:59 Intake Total 840 500 750 Output Total 1575 1425 65 Balance -735 -925 685 PT 13.0 SEC (12.0-15.0) 06/11/18 12:00 INR 1.02 (0.83-1.16) 06/11/18 12:00 ICD10 Worksheet Patient Problems: Problems Problem Status Onset Carotid stenosis, left Acute Fracture of left hip Acute Hyperglycemia 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
[2018-06-14] MEDS: INSULIN GLARGINE 100 UNITS/ML UNIT SC SCH (21:30)
[2018-06-15 05:15] LABS: PLATELET COUNT 192 10^3/uL (150-400)
--- NOTE | 2018-06-15 07:47 | POSTOPPROG ---
Post Op Note Date of Operation: 06/15/18 Surgeon: Puneet Naik Manager Business Intelligence: Rubio Anesthesiologist: Katharina Anesthesia: IV Sedation, Spinal Pre-op Diagnosis: Left femoral neck fracture Post-op Diagnosis: same Procedure: Left hip closed reduction percutaneous screw fixation Inf/Abcess present in the surg proc area at time of surgery?: No EBL: Minimal
--- NOTE | 2018-06-15 07:48 | SOAPPROG ---
SOAP Progress Note Assessment/Plan: Assessment: 82-year-old male with multiple medical problems including acute CVA , undiagnosed and uncontrolled diabetes, chest abscess, femoral neck fracture postop day 1 status post percutaneous screw fixation Plan: 20 lb foot flat weight-bearing with walker and physical therapy DVT prophylaxis: As per primary and neurology Will require subacute rehab Disposition: Pending 06/15/18 07:48 Subjective: No acute events. Pain well controlled. Denies fevers chills nausea vomitting chest pain shortness of breath numbness or tingling. Objective: Vital Signs Temp Pulse Resp BP Pulse Ox 36.9 C 71 15 120/67 96 06/15/18 07:42 06/15/18 07:42 06/15/18 07:42 06/15/18 07:42 06/15/18 07:42 Laboratory Results 06/15/18 04:45 06/15/18 04:45 06/14/18 06/15/18 06/16/18 05:59 05:59 05:59 Intake Total 500 1110 Output Total 1425 1015 Balance -925 95 PT 13.0 SEC (12.0-15.0) 06/11/18 12:00 INR 1.02 (0.83-1.16) 06/11/18 12:00 Awake alert and oriented x3 Easy nonlabored breathing Left hip: Dressing joint no erythema drainage or signs of infection Thigh and calf compartments soft compressible Sensation intact to light touch L4-S1 Motor intact EHL FHL tibialis anterior gastrocsoleus Palpable DP PT pulses ICD10 Worksheet Patient Problems: Problems Problem Status Onset Carotid stenosis, left Acute Fracture of left hip Acute Hyperglycemia 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
[2018-06-15] MEDS: ASPIRIN 81 MG CHEWABLE TAB PO SCH (08:11)
[2018-06-15] MEDS: ATORVASTATIN CALCIUM 40 MG TAB PO SCH (08:11)
[2018-06-15] MEDS: ACETAMINOPHEN 325 MG TAB PO PRN (08:12)
[2018-06-15] MEDS: ENOXAPARIN 40 MG/0.4 ML SYR SC SCH (08:13)
[2018-06-15] MEDS: INSULIN REGULAR HUMAN 100 UNIT/ML UNIT SC SCH ×4 (08:13→20:53)
--- NOTE | 2018-06-15 08:33 | NEUROPROG ---
Assessment: total unit time 15 min. patient is s/p hip fx repair but has abscess in chest wall so just pinning done and has done well in terms of the stroke recovery. At this point, continue antiplatelet therapy and follow up with Dr. Krueger to make plans for left CEA in the next few weeks if infection cleared. Disposition to be determined. Subjective: patient is reporting no complaints Objective: Vital Signs Temp Pulse Resp BP Pulse Ox 36.9 C 71 15 120/67 96 06/15/18 07:42 06/15/18 07:42 06/15/18 07:42 06/15/18 07:42 06/15/18 07:42 Microbiology 06/15/18 01:25 Gram Stain - Final Chest - Swab Laboratory Results 06/15/18 04:45 06/15/18 04:45 06/14/18 06/15/18 06/16/18 05:59 05:59 05:59 Intake Total 500 1110 Output Total 1425 1015 Balance -925 95 PT 13.0 SEC (12.0-15.0) 06/11/18 12:00 INR 1.02 (0.83-1.16) 06/11/18 12:00 alert and attentive with clear and fluent speech and no focal weakness. Allergies/Adverse Reactions: No Known Allergies Allergy (Verified 06/11/18 13:14)
--- NOTE | 2018-06-15 09:59 | HOSPPROG ---
Hospitalist Progress Note Assessment/Plan: Mr Dugan is an 82 yo male who presented after falling and sustaining a hip fx. while in the ER he developed difficulty w word finding and word salad. [facility] was called, and not TPA was ordered due to his hip fx. *CVA-acute. Left MCA distribution -asa and statin -tele has been in sinus -will ask cardiology to evaluate while in the hospital *large draining abscess on chest -draining purulent drainage -Dr Guerra to see *Left hip fracture -surgery on 06/14- had a percutaneous screw fixation -was to have hip replacement, but not performed due to abscess on chest and new dx diabetes *Left hip pain -well managed *Carotid artery ervkmkgn-xshd-muecn, 70% -reviewed Dr Krueger note, surgery in a few weeks after patient recovers from hip surgery *Thyroid nodule -needs further evaluation in the OP setting- *newly diagnosed DM -A1c is 11 -on sliding scale -added Lantus * mild Leukocytosis-mild -stress response *plan: Abscess to be drained at bedside, Dr Guerra to see, call into cardiology to see. Subjective: Karlos has no significant complaints. Objective: Vital Signs Temp Pulse Resp BP Pulse Ox 36.9 C 71 15 120/67 96 06/15/18 07:42 06/15/18 07:42 06/15/18 07:42 06/15/18 07:42 06/15/18 07:42 Microbiology 06/15/18 01:25 Gram Stain - Final Chest - Swab Laboratory Results 06/15/18 04:45 06/15/18 04:45 06/14/18 06/15/18 06/16/18 05:59 05:59 05:59 Intake Total 500 1110 Output Total 1425 1015 Balance -925 95 PT 13.0 SEC (12.0-15.0) 06/11/18 12:00 INR 1.02 (0.83-1.16) 06/11/18 12:00 - Physical Exam Constitutional: no apparent distress, appears nourished, not in pain Eyes: PERRL Ears, Nose, Mouth, Throat: hard of hearing Cardiovascular: regular rate and rhythym Respiratory: no respiratory distress Skin: warm, other (on the lower part of the sternum is a darkened area with an opening at the base, when pressed on -had creamy brown drainage) Neurologic: AAOx3 Psychiatric: interacting appropriately ICD10 Worksheet Patient Problems: Problems Problem Status Onset Carotid stenosis, left Acute Fracture of left hip Acute Hyperglycemia 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
--- NOTE | 2018-06-15 10:40 | PDCONSULT ---
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 Suspect Staph aureus. Reasonable to continue cefazolin for now and will follow up on cultures. Duration and modality of antibiotic therapy to complete treatment to be determined. At this point do not think he needs a CT of the sternum but certainly possible this has eroded to deeper tissues, will continue to monitor clinically. # leukocytosis: Likely multifactorial related to CVA, acute hip fracture. Cannot completely exclude component of chest wall abscess contributing. # poorly controlled/newly diagnosed diabetes: Control of diabetes essential to healing of chest wall abscess. Recommendations were relayed to Amy Rogers and surgical team. Chief complaint: Chest abscess Referring provider: Amy Rogers NP History of present illness: 82 year-old male who I am asked to see in consultation for a persistent chest abscess. Pt arrived by ambulance to [facility] on 06/11/18 for evaluation of injuries sustained s/p fall. 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 He proceeded to walk home along his normal route, heading [place] on [address], when he tripped on a new slab of cement placed under a light pole from recent construction. The ambulance arrived on site and transferred him to the hospital although he asked to go home. He was alert and orientated upon arrival to ER and noted some L-hip pain. His glucose was 400 w and was dx with diabetes during admission. He was also found to have a L- femoral neck fx. He did develop confusion while in ER and subsequently was found to have acute ischemia posterior watershed area on the left in the distribution of left MCA and an occulted L carotid with plans to undergo CEA on the left. Echocardiogram with normal LV function with mild concentric L ventricular hypertrophy, mild mitral and tricuspid regurgitation. Pt underwent repair of L-femoral neck fx this morning and is surprised how well he is feeling postoperatively. Infectious Disease services is asked to consult pt with regard to abscess with expressible purulent drainage on chest wall. This has been present for multiple months and he has been removing purulent material himself at home. He feels the area was started after the development of ingrown hair. PMHx: No hx of CVA or stroke, but it was 1960 since his last doctors visit. SHx: L-femoral neck fx repair as of this morning. Family hx: Mother had diabetes secondary to multiple surgeries to tx stomach cancer. Social hx: Has lived in [place] since [address] Does [address] or own a car. Prefers to walk everywhere. Will have an Occasional shaw every now and then. Does not smoke. No pets at home. No travel. Single. Pt lives off of [facility]. Did serve in the [employer] for 4 years. 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 Has been retired from [employer] for 20 years, but now works at the [employer] in [employer]. Allergies: 3 Allergy/AdvReac Type Severity Reaction Status Date / Time No Known Allergies Allergy Verified 06/11/18 13:14 Medications: 3 Generic Name Dose Route Start Last Admin Trade Name Freq PRN Reason Stop Dose Admin Acetaminophen 650 mg 06/11/18 13:57 06/15/18 08:12 Tylenol PO 12/08/18 13:56 650 mg Q4HRS PRN Administration Pain, Mild/Fever, Can Take PO Hydrocodone Bitart/Acetaminophen 1 - 2 tab 06/11/18 13:57 [place] 5/325 PO 06/21/18 13:56 Q4HRS PRN Pain, Moderate Able to Take PO Aspirin 81 mg 06/11/18 17:00 06/15/18 08:11 Aspirin PO 12/08/18 16:59 81 mg DAILY MAC Administration Atorvastatin Calcium 40 mg 06/12/18 09:00 06/15/18 08:11 Lipitor PO 12/09/18 08:59 40 mg DAILY MAC Administration Dextrose 25 gm 06/11/18 15:06 Dextrose 50% Syringe IVP 12/08/18 15:05 PRN PRN Hypoglycemia Enoxaparin Sodium 40 mg 06/15/18 09:00 06/15/18 08:13 Lovenox SC 12/12/18 08:59 40 mg DAILY MAC Administration Sodium Chloride 1,000 mls @ 75 mls/hr 06/11/18 14:00 06/14/18 10:56 Ns IV 12/08/18 13:59 1,000 mls CONT MAC Administration Lactated Ringer's 1,000 mls @ 100 mls/hr 06/14/18 09:30 06/14/18 13:39 Lr IV 12/11/18 09:29 1,000 mls CONT MAC Administration Cefazolin Sodium/Dextrose 50 mls @ 200 mls/hr 06/15/18 14:00 Ancef 1 Gm (Premix) IV 06/17/18 06:14 Q8HRS MAC Protocol Insulin Glargine 10 units 06/13/18 21:00 06/14/18 21:30 Lantus Syringe SC 12/10/18 20:59 10 units HS MAC Administration Insulin Human Regular 0 unit 06/12/18 17:30 06/15/18 08:13 Humulin R SC 12/09/18 17:29 1 units ACHS MAC Administration Protocol Morphine Sulfate 1 - 2 mg 06/11/18 13:57 Morphine IVP 06/21/18 13:56 Q1HR PRN Pain, Severe Unable to Take PO Ondansetron HCl 4 mg 06/11/18 13:57 Zofran IVP 12/08/18 13:56 Q4HRS PRN Nausea/Vomiting, Can't Take PO ROS: 10 systems were reviewed and are negative with the exception of the elements mentioned in the HPI. Vitals: 3 Temp Pulse Resp BP Pulse Ox 36.9 C 71 15 120/67 96 06/15/18 07:42 06/15/18 07:42 06/15/18 07:42 06/15/18 07:42 06/15/18 07:42 Physical exam: General: Well-nourished, well-developed in no acute distress. Appears nontoxic. HEENT: No scleral icterus, conjunctival injection, conjunctiva petechiae. Oropharynx shows moist mucous membranes with no thrush. Neck: Supple. No nuchal rigidity. Respiratory: Clear to auscultation bilaterally without adventitious sounds. Respiratory effort is normal. Chest: There are x3 holes with expressible purulent drainage, surrounding chronic appearing purplish erythema. Nontender to palpation. No crepitus Cardiovascular: Regular rate rhythm with faint systolic murmur. No gallops or rubs. Abdomen: Soft, nontender, nondistended. Musculoskeletal: No cyanosis, clubbing or edema. Skin: No rashes. No stigmata of endocarditis. Neuro: Conversational, fluent speech. Moving all 4 extremities. Laboratory results: 3 WBC 9.63 10^3/uL (3.80-9.50) H 06/15/18 04:45 RBC 4.32 10^6/uL (4.40-6.38) L 06/15/18 04:45 Hgb 13.2 g/dL (13.7-17.5) L 06/15/18 04:45 Hct 40.0 % (40.0-51.0) 06/15/18 04:45 MCV 92.6 fL (81.5-99.8) 06/15/18 04:45 MCH 30.6 pg (27.9-34.1) 06/15/18 04:45 MCHC 33.0 g/dL (32.4-36.7) 06/15/18 04:45 RDW 12.1 % (11.5-15.2) 06/15/18 04:45 Plt Count 192 10^3/uL (150-400) 06/15/18 04:45 MPV 10.1 fL (8.7-11.7) 06/15/18 04:45 Neut % (Auto) 72.3 % (39.3-74.2) 06/15/18 04:45 Lymph % (Auto) 15.2 % (15.0-45.0) 06/15/18 04:45 Bucks % (Auto) 9.0 % (4.5-13.0) 06/15/18 04:45 Eos % (Auto) 2.6 % (0.6-7.6) 06/15/18 04:45 Baso % (Auto) 0.5 % (0.3-1.7) 06/15/18 04:45 Nucleat RBC Rel Count 0.0 % (0.0-0.2) 06/15/18 04:45 Absolute Neuts (auto) 6.96 10^3/uL (1.70-6.50) H 06/15/18 04:45 Absolute Lymphs (auto) 1.46 10^3/uL (1.00-3.00) 06/15/18 04:45 Absolute Monos (auto) 0.87 10^3/uL (0.30-0.80) H 06/15/18 04:45 Absolute Eos (auto) 0.25 10^3/uL (0.03-0.40) 06/15/18 04:45 Absolute Basos (auto) 0.05 10^3/uL (0.02-0.10) 06/15/18 04:45 Absolute Nucleated RBC 0.00 10^3/uL (0-0.01) 06/15/18 04:45 Immature Gran % 0.4 % (0.0-1.1) 06/15/18 04:45 Immature Gran # 0.04 10^3/uL (0.00-0.10) 06/15/18 04:45 PT 13.0 SEC (12.0-15.0) 06/11/18 12:00 INR 1.02 (0.83-1.16) 06/11/18 12:00 APTT 27.6 SEC (23.0-38.0) 06/11/18 12:00 Sodium 133 mEq/L (135-145) L 06/15/18 04:45 Potassium 3.7 mEq/L (3.5-5.2) 06/15/18 04:45 Chloride 101 mEq/L (97-110) 06/15/18 04:45 Carbon Dioxide 27 mEq/l (22-31) 06/15/18 04:45 Anion Gap 5 mEq/L (6-14) L 06/15/18 04:45 BUN 16 mg/dL (7-23) 06/15/18 04:45 Creatinine 0.6 mg/dL (0.7-1.3) L 06/15/18 04:45 Estimated GFR > 60 06/15/18 04:45 Glucose 135 mg/dL (70-100) H 06/15/18 04:45 POC Glucose 155 mg/dL (70-100) H 06/15/18 07:43 Hemoglobin A1c 11.9 % (4.0-6.0) H 06/12/18 04:39 Estim Average Glucose 295 mg/dL (68-126) H 06/12/18 04:39 Calcium 8.2 mg/dL (8.5-10.4) L 06/15/18 04:45 POC Troponin I 0.00 ng/mL (0.00-0.08) 06/11/18 12:45 Triglycerides 59 mg/dL (40-150) 06/12/18 04:39 Cholesterol 159 mg/dL (140-220) 06/12/18 04:39 Cholesterol Risk Factr 0.4 (0.2-1.0) 06/12/18 04:39 LDL Cholesterol, Calc 85 mg/dL (80-100) 06/12/18 04:39 LDL Risk Factor 0.6 (0.2-1.0) 06/12/18 04:39 VLDL Cholesterol 12 mg/dL (8-25) 06/12/18 04:39 Non-HDL Cholesterol 97 mg/dL (90-129) 06/12/18 04:39 HDL Cholesterol 62 mg/dL (40-65) 06/12/18 04:39 LDL/HDL Ratio 1.37 RATIO (1.00-3.64) 06/12/18 04:39 Cholesterol/HDL Ratio 2.56 RATIO (1.00-4.97) 06/12/18 04:39 Microbiology: 06/15/18 01:25 Chest Swab gram stain with 1+ GPC, 2+ PMNs, culture pending results. Scribe attestation: IFlor, am scribing for, and in the presence of, Leslie Guerra MD I, Amie Meditz, MD, personally performed the services described in this documentation, as scribed by Flor Kilpatrick in my presence, and it is both accurate and complete. Greater than 50 minutes spent on this patients care, greater than 50% of time spent counseling, educating, and coordinating care regarding the above mentioned plan.
[2018-06-15] MEDS ORDERED: BUPIVACAINE 0.5% 10 ML SDV IF ONE (11:00)
--- NOTE | 2018-06-15 14:53 | GOP ---
[f rep st] OPERATIVE REPORT DATE OF OPERATION: SURGEON: Puneet Naik MD PREOPERATIVE DIAGNOSIS: Left hip femoral neck fracture. POSTOPERATIVE DIAGNOSIS: Left hip femoral neck fracture. PROCEDURE PERFORMED: Left hip closed reduction and percutaneous screw fixation of the femoral neck fracture. FINDINGS: SPECIMENS: None. IMPLANTS: Synthes 7.3mm partially threaded cannulated screws x3 ESTIMATED BLOOD LOSS: 50 cc. INDICATIONS: The patient sustained a mechanical fall and a left femoral neck fracture. He then had a subsequent stroke while in the emergency department. 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 Surgery was delayed for medical reasons for approximately 3 days. The patient was notified that the displacement of his fracture would be best treated with hemiarthroplasty. However, given the patient's significant risk for infection given the active abscess with purulent drainage, as well as an A1c of 12, recommendation for closed reduction and percutaneous screw fixation was suggested. After discussing the pros, cons, risks, benefits, expected recovery, and prognosis, he elected to proceed with the procedure. He verbalized understanding of the risks and benefits of the procedure including malunion, nonunion, avascular necrosis, hardware failure, and increased risk of infection. He signed the informed consent prior to procedure. DESCRIPTION OF PROCEDURE: The patient was seen in the holding area. Operative site was signed. He was taken to the operating room and given spinal anesthesia with IV sedation. He was placed on the fracture table with dual C- arms in lateral and AP positions. The hip was prepped and draped in the usual sterile fashion. Operative site was confirmed by signature. Timeout performed. Allergies reviewed. Antibiotics were administered. In a percutaneous fashion, guidewires were placed under fluoroscopic visualization in an inverse triangular formation. A cannulated drill was used to drill the far lateral cortex only over the guide pins. The guide pins were used to measure screw lengths. These were then inserted over the guidewires under fluoroscopic visualization. The guide pins were then removed. The final x- rays were taken. The incision was irrigated with saline, and closed with 2-0 Vicryl and 3-0 Monocryl. Dermabond, Steri-Strips, and sterile dressings were applied. The patient was safely awakened, extubated, and taken to the recovery room in stable condition. The entire procedure was performed by laDr. Naik. This operative note was created by me, and I was immediately available for emergency cross-coverage at all times. /[id number]/MODL MTDD
--- NOTE | 2018-06-15 16:37 | SOAPPROG ---
SOAP Progress Note Assessment/Plan: Assessment/plan: 82 y/o M admitted for L femoral neck fracture, found to have acute ischemia involving posterior watershed area on L on brain MRI. Plan for CEA in 2 weeks. Also found to have superficial abscess on anterior chest wall. We were asked to see the pt for I&D. Procedure: Consent was obtained and time out was performed prior to procedure. Area was prepped with chloraprep and draped with sterile towels. 0.5% Marcaine was injected into the area and an incision was made with a 15 blade. Seropurulent material was expressed from the wound. The wound was irrigated with sterile saline and packed with 1/2" plain gauze. A secondary dressing of gauze and medipore tape was applied. The pt tolerated the procedure well. S: Biggest complaint is L hip pain. Slight tenderness around abscess site. O: Alert Afebrile Chest: No increased WOB. Approximately 3x3cm abscess on anterior chest that is actively draining through 3 separate openings. Surrounding erythema and induration present. Abdomen soft, nontender 06/15/18 16:28 Objective: Vital Signs Temp Pulse Resp BP Pulse Ox 37.1 C 77 17 134/81 H 98 06/15/18 15:36 06/15/18 15:36 06/15/18 15:36 06/15/18 15:36 06/15/18 15:36 Microbiology 06/15/18 01:25 Gram Stain - Final Chest - Swab Laboratory Results 06/15/18 04:45 06/15/18 04:45 06/14/18 06/15/18 06/16/18 05:59 05:59 05:59 Intake Total 500 1110 Output Total 1425 1015 750 Balance -925 95 -750 PT 13.0 SEC (12.0-15.0) 06/11/18 12:00 INR 1.02 (0.83-1.16) 06/11/18 12:00 ICD10 Worksheet Patient Problems: Problems Problem Status Onset Carotid stenosis, left Acute Fracture of left hip Acute Hyperglycemia 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
--- NOTE | 2018-06-15 16:45 | ASMTCMCOM ---
CM Note CM Note Notes: PT is recommending inpt rehab. Requested order from hospitalist. Spoke with pt regarding IR recommendation. He wants to think about it and let us know. Also discussed SNF as an option. He is s/p a L hip ORIF. He also has an abscess on his chest. ID is following and a cardiology consult has been requested. CM will continue to follow. D/C plan: TBD Date Signed: 06/15/2018 04:44 PM Electronically Signed By:LILIYA Rodriguez
--- NOTE | 2018-06-15 17:59 | GCON ---
[f rep st] CONSULTATION CARDIOLOGY CONSULTATION DATE OF CONSULTATION: 06/15/2018 REASON FOR CONSULTATION: New onset of left middle cerebral artery CVA coupled with new diagnosis of significant left internal carotid artery stenosis and newly diagnosed diabetes. HISTORY OF PRESENT ILLNESS: The patient is a pleasant 82-year-old gentleman who prior to his admissi on had no past medical history; he is on no medications. He was in his usual state of health until M arch 25 when he went to work. He reports that his boss noted that he was behaving oddly. He was not aware of this. She commented that one of his eyes appeared to be drooping. He was also not aware o f this. He denied any visual field disturbances. He states he was walking home from his work, walking down [address] when he stumbled over a new c oncrete edge surrounding a light post that was new construction. He fell, in his words, "rapidly" fo rward resulting in hip fracture. EMS was called and he was brought to [facility] for fur ther evaluation. During his evaluation in the ER, he was found to have a left femoral neck fracture. Also while in the ER, he was found to have a new onset of acute difficulty with word finding and de veloped word salad. Workup demonstrated significant left-sided carotid stenosis with 70% left creative intern al stenosis. Brain MRI demonstrates left middle cerebral artery watershed CVA. He was not deemed to be candidate for tPA with need for upcoming hip surgery and his symptoms gradually resolve. The patient was evaluated by Neurology with Dr. Tim Ron, who confirmed the presence of a left middle cerebral territory watershed infarct, thought to be secondary to significant left-sided caroti d stenosis. It was recommended that he start on aspirin therapy, as well as statin therapy. He is t olerating both these medications well. Of note, during this hospitalization, he was found to have a markedly elevated glucose in the 400s. Hemoglobin A1c demonstrates a value of 11.9, consistent with an average glucose of approximately 250. Lipids demonstrate total cholesterol 159, triglycerides of 59, HDL of 62 and LDL of 85. The patient has no previous history of hypertension, hyperlipidemia or diabetes prior to today's admi ssion. He has no known history of coronary disease. He has no history of atrial fibrillation. He i s not under regular medical care. PAST MEDICAL HISTORY: None. PAST SURGICAL HISTORY: None. MEDICATIONS ON ADMISSION: None. ALLERGIES: None. FAMILY HISTORY: Father lived to be 96. His mother did have diabetes and colon cancer. He has 3 sib lings, all of whom are alive and well in either [place] or [place]. SOCIAL HISTORY: He lives alone. He has no children. He was never . He has lived in the [facility] apartment off [facility] for over the last 20 years. 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 He is a life long nonsmoker. He drinks approximately 3 margaritas per month. No marijuana or illicit drug use. He walks everywhere and infrequently drives a car. Of note, the patient has also been found to have a chronic chest wall abscess. He is undergoing inci rangel and drainage today. Infectious Disease has been consulted with Dr. Leslie Guerra and suspect like ly Staphylococcus aureus. He is currently on cephazolin. PHYSICAL EXAMINATION: VITAL SIGNS: Blood pressure 134/81, heart rate of 77, sinus rhythm, oxygen sa turation 98% on room air, respiratory rate 17, temperature 37.1. GENERAL: He is awake, alert, orien taryn, appropriate. No apparent distress. NECK: There is no evidence of JVP. I cannot appreciate br uits. LUNGS: Clear anteriorly. CARDIAC: S1, S2. There is a 1/6 systolic murmur at the apex witho ut radiation. PMI is not displaced. CHEST: He has a dressing over his anterior chest secondary to incision and drainage of his recent surgical procedure. ABDOMEN: Soft, nontender. EXTREMITIES: Th ere is no evidence of cyanosis, clubbing or edema. REVIEW OF SYSTEMS: Negative for chest pain, chest pressure, shortness of breath, or dyspnea. No com plaints of PND, orthopnea, or lower extremity edema. He denies palpitations, dizziness, lightheadedn ess, near syncope or syncope. No complaints of exertional intolerance or fatigue. DATA: White blood cell count 9.6, hemoglobin 13.2, hematocrit 40, platelet count 192. Sodium 135, p otassium 4.9, chloride 103, bicarb 25, BUN 13, creatinine 0.7, glucose 209. Hemoglobin A1c 11.9, for an average sugar of 295. Total cholesterol 159, triglycerides 52, HDL 62, LDL 85. Complete 2D echocardiogram demonstrates normal left ventricular function with LVEF of 65%. Mild mitr al regurgitation. Normal RV size and function. RV systolic pressure within normal limits at 27 mmHg . Normal left and right atrial dimensions. ECG demonstrates sinus rhythm with 1st degree AV block, left axis deviation, and poor R-wave progress ion. CTA demonstrates 70% stenosis of the left internal carotid artery. No significant flow-limiting dise ase in the right. Brain MRI demonstrates left middle cerebral artery CVA. He is also status post left hip closed reduction, percutaneous repair of left femoral neck fracture. IMPRESSION: 1. New left middle cerebral artery cerebrovascular accident. 2. New diagnosis of significant left-sided internal carotid artery disease. 3. New onset of poorly controlled diabetes. 4. Large anterior chest wall abscess with purulent drainage, status post incision and drainage today . 5. Left hip fracture, status post percutaneous closed reduction and screw fixation performed earlier today. RECOMMENDATIONS: 1. Recommend outpatient ZIO patch monitoring in the setting of left middle cerebral artery CVA. 2. We will arrange for outpatient pharmacologic nuclear stress test prior to carotid artery surgery with Dr. Krueger in the next 2-3 weeks. In the setting of newly diagnosed diabetes and carotid artery disease, I think that further cardiac risk stratification prior to carotid surgery is appropriate. 3. Agree with statin therapy. Goal LDL less than 70. Agree with ongoing aspirin. 4. If Zio patch monitor is unremarkable, would consider implantable loop recorder once his anterior chest wall abscess has completely healed and there is no evidence of further infection and he has con tinued to do well after completion of course of antibiotics. 5. /[id number]/MODL
[2018-06-15] MEDS: INSULIN GLARGINE 100 UNITS/ML UNIT SC SCH (20:53)
--- NOTE | 2018-06-16 07:29 | SOAPPROG ---
SOAP Progress Note Assessment/Plan: Assessment: 82-year-old male with multiple medical problems including acute CVA , undiagnosed and uncontrolled diabetes, chest abscess, femoral neck fracture postop day 2 status post percutaneous screw fixation Plan: 20 lb foot flat weight-bearing with walker and physical therapy DVT prophylaxis: As per primary and neurology s/p chest abscess I&D - doing well Will require subacute rehab Disposition: Pending 06/15/18 07:48 06/16/18 07:27 Subjective: Pain well controlled. No acute events overnight. Denies fevers chills nausea vomiting chest pain shortness of breath numbness or tingling Objective: Vital Signs Temp Pulse Resp BP Pulse Ox 36.6 C 85 13 94/63 L 95 06/16/18 05:39 06/16/18 05:39 06/16/18 05:39 06/16/18 05:39 06/16/18 05:39 Microbiology 06/15/18 01:25 Gram Stain - Final Chest - Swab Laboratory Results 06/16/18 04:42 06/15/18 04:45 06/15/18 06/16/18 06/17/18 05:59 05:59 05:59 Intake Total 1110 200 Output Total 1015 1200 Balance 95 -1000 PT 13.0 SEC (12.0-15.0) 06/11/18 12:00 INR 1.02 (0.83-1.16) 06/11/18 12:00 Awake alert and oriented x3 Easy nonlabored breathing Left hip: Dressing joint no erythema drainage or signs of infection Thigh and calf compartments soft compressible Sensation intact to light touch L4-S1 Motor intact EHL FHL tibialis anterior gastrocsoleus ICD10 Worksheet Patient Problems: Problems Problem Status Onset Carotid stenosis, left Acute Fracture of left hip Acute Hyperglycemia 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
--- NOTE | 2018-06-16 08:13 | PDCARPN ---
Cardiology Progress Note Assessment/Plan: Assessment: -Left MCA CVA -Severe Left Internal Carotid disease -New dx of DM (AIC of 11.9) Plan: -continiue Aspirin 81 mg daily -continue Atorvastatin 40 mg daily -plan for out pt Zio patch monitor -plan for out pt Lexiscan Nuclear Stress Test prior to CEA with Dr. Krueger -Will arrange above tests as well as follow up with me prior to surgery. 06/16/18 08:10 Subjective: Mr. Dugan is feeling well this AM. No complaints. Tele demonstrates NSR. BP stable. No new neurologic symptoms. No complaints of chest pain, sob. Objective: Vital Signs (8 Hrs) Temp Pulse Resp BP Pulse Ox 06/16/18 05:39 36.6 C 85 13 94/63 L 95 Intake/Output (24 Hrs) 06/15/18 06/16/18 06/17/18 05:59 05:59 05:59 Intake Total 1110 200 Output Total 1015 1200 Balance 95 -1000 Intake: Oral (ml) 460 200 IV Intake (ml) 650 Output: Urine (ml) 1000 1200 Catheter 1000 750 Urinal 450 Estimated Blood Loss (ml) 15 Other: Weight 72.575 kg Intake Quantity Yes Sufficient Result Diagrams: 06/16/18 04:42 06/15/18 04:45 - Physical Exam Constitutional: no apparent distress Neurologic: AAOx3, CN II-XII grossly intact Psychiatric: cooperative, interactive, following commands ICD10 Worksheet Patient Problems: Problems Problem Status Onset Carotid stenosis, left Acute Fracture of left hip Acute Hyperglycemia 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
[2018-06-16] MEDS: ASPIRIN 81 MG CHEWABLE TAB PO SCH (08:14)
[2018-06-16] MEDS: ENOXAPARIN 40 MG/0.4 ML SYR SC SCH (08:14)
[2018-06-16] MEDS: ATORVASTATIN CALCIUM 40 MG TAB PO SCH (08:14)
[2018-06-16] MEDS: INSULIN REGULAR HUMAN 100 UNIT/ML UNIT SC SCH ×4 (08:30→21:15)
--- NOTE | 2018-06-16 11:13 | ASMTCMCOM ---
CM Note CM Note Notes: Dr Rogers has placed an order for In-Patient Rehab. D/C Plan: TBD Date Signed: 06/16/2018 11:12 AM Electronically Signed By:Meghan Ya
--- NOTE | 2018-06-16 12:17 | PCMIDPN ---
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, chronic purplish benja-wound erythema, stable to sl improvement --cefazolin x 3 more doses then Keflex 500mg PO TID x 8 more days, entered into [facility] --wound care per surgical recs --ordered sensi on GBS --call ID for additional questions Meds cefazolin 1gm IV q8h #1 Microbiology 06/15/18 01:25 Chest - Cx: Strep Agalactiae Group B Subjective: feeling well, no c/o Objective: Vital Signs Temp Pulse Resp BP Pulse Ox 36.8 C 93 20 94/67 L 96 06/16/18 11:48 06/16/18 11:48 06/16/18 11:48 06/16/18 11:48 06/16/18 11:48 Microbiology 06/15/18 01:25 Gram Stain - Final Chest - Swab Laboratory Results 06/16/18 04:42 06/15/18 04:45 06/15/18 06/16/18 06/17/18 05:59 05:59 05:59 Intake Total 1110 200 Output Total 1015 1200 200 Balance 95 -1000 -200 - Physical Exam General Appearance: alert, no apparent distress, non-toxic Respiratory: No accessory muscle use Cardiac/Chest: other (purplish erythema overlying sternum, NT, dressing saturated w blood, no active bleeding, no purulence) Skin: normal color, warm/dry, No rash Neuro/Psych: no motor/sensory deficits, alert, normal mood/affect, oriented x 3 - Time Spent With Patient Time Spent with Patient: greater than 25 minutes Time Spent with Patient: Greater than 25 minutes spent on this patients care, greater than 50% of time spent counseling, educating, and coordinating care regarding the above mentioned plan. 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
[2018-06-16] MEDS ORDERED: LACTULOSE 20 GM/30 ML UDCUP PO PRN (13:44)
[2018-06-16] MEDS ORDERED: MAGNESIUM HYDROXIDE 30 ML UDCUP PO PRN (13:44)
[2018-06-16] MEDS ORDERED: BISACODYL 10 MG SUPP PR PRN (13:44)
--- NOTE | 2018-06-16 13:56 | HOSPPROG ---
Hospitalist Progress Note Assessment/Plan: Mr Dugan is an 82 yo male who presented after falling and sustaining a hip fx. While in ER he developed symptoms of word finding, had an acute stroke. Was noted to have left sided carotid artery stenosis. This will be addressed in a few weeks. Went to OR to have hip replacement, but a large draining wound on his chest was noted so a percutaneous screw fixation was performed instead. There was concern from orthopedics to put in a replacement w an infected wound. Subsequently, ID saw Lambert and treated the infection. He was seen by cardiology to get further evaluation of his heart prior to the CEA. Also, he was found to be diabetic during his stay. *Left MCA CVA-acute. -asa and statin -tele has been in sinus -appreciate cards seeing him -OP ZIO patch monitor -Lexiscan Nuclear stress test prior to surgery w Dr Krueger *Carotid artery sygwdkzj-niul-qaewd, 70% -reviewed Dr Krueger note, surgery in a few weeks after patient recovers from hip surgery *large draining abscess on chest -draining purulent drainage -Dr Guerra to see *Left hip fracture -surgery on 06/14- had a percutaneous screw fixation -was to have hip replacement, but not performed due to chest abscess and new dx diabetes *Left hip pain -well managed *chest abscess (GBS) -has been there for a long time -continue Cefazolin x 3 doses then Keflex 500 mg tid x 8 days -appreciate Dr Guerra *Thyroid nodule -needs further evaluation in the OP setting- *newly diagnosed DM -A1c is 11 -on sliding scale, Lantus and metformin -ADA diet (asked dietary to see and teach him how to count carbohydrates) -asked nursing to teach him how to give himself insulin * mild Leukocytosis-mild -stress response *plan: asked IP rehab to evaluate; added bowel protocol. Subjective: Karlos is feeling well. His main concern is being able to care for himself when at home. Objective: Vital Signs Temp Pulse Resp BP Pulse Ox 36.8 C 93 20 94/67 L 96 06/16/18 11:48 06/16/18 11:48 06/16/18 11:48 06/16/18 11:48 06/16/18 11:48 Microbiology 06/15/18 01:25 Gram Stain - Final Chest - Swab Laboratory Results 06/16/18 04:42 06/15/18 04:45 06/15/18 06/16/18 06/17/18 05:59 05:59 05:59 Intake Total 1110 200 Output Total 1015 1200 200 Balance 95 -1000 -200 PT 13.0 SEC (12.0-15.0) 06/11/18 12:00 INR 1.02 (0.83-1.16) 06/11/18 12:00 - Physical Exam Constitutional: no apparent distress, appears nourished, not in pain Eyes: PERRL Ears, Nose, Mouth, Throat: hearing normal Cardiovascular: regular rate and rhythym Respiratory: no respiratory distress Skin: warm Musculoskeletal: generalized weakness Neurologic: AAOx3 Psychiatric: interacting appropriately ICD10 Worksheet Patient Problems: Problems Problem Status Onset Carotid stenosis, left Acute Fracture of left hip Acute Hyperglycemia 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
[2018-06-16] MEDS: POLYETHYLENE GLYCOL 3350 17 GM PKT PO SCH (14:05)
[2018-06-16] MEDS: metFORMIN HCL 500 MG TAB PO SCH (18:32)
[2018-06-16] MEDS: INSULIN GLARGINE 100 UNITS/ML UNIT SC SCH (21:15)
[2018-06-16] MEDS: SENNOSIDES/DOCUSATE SODIUM TAB PO SCH (21:15)
--- NOTE | 2018-06-17 03:27 | GOP ---
[f rep st] OPERATIVE REPORT DATE OF OPERATION: 06/15/2018 SURGEON: Terrence Krueger MD PREOPERATIVE DIAGNOSIS: Subcutaneous abscess of the chest. POSTOPERATIVE DIAGNOSIS: Subcutaneous abscess of the chest. PROCEDURE PERFORMED: Incision and drainage of a chest wall abscess. FINDINGS: Patient was found to have a large subcutaneous abscess over his sternum. There were 2 ope n holes to the outside beginning to drain. DESCRIPTION OF PROCEDURE: Patient was prepped and draped in a sterile fashion, anesthetized with 1% Xylocaine. A transverse incision was made through the 2 openings into the abscess cavity. A large a mount of purulent material was evacuated and irrigated out. Hemostasis was assured, and the wound wa s packed with some iodoform gauze. He tolerated the procedure well. There were no complications. /[id number]/MODL
[2018-06-17 04:53] LABS: PLATELET COUNT 230 10^3/uL (150-400)
[2018-06-17] MEDS: INSULIN REGULAR HUMAN 100 UNIT/ML UNIT SC SCH ×4 (08:58→20:59)
[2018-06-17] MEDS: ENOXAPARIN 40 MG/0.4 ML SYR SC SCH (08:58)
[2018-06-17] MEDS: ASPIRIN 81 MG CHEWABLE TAB PO SCH (08:59)
[2018-06-17] MEDS: metFORMIN HCL 500 MG TAB PO SCH ×2 (08:59→17:05)
[2018-06-17] MEDS: POLYETHYLENE GLYCOL 3350 17 GM PKT PO SCH (08:59)
[2018-06-17] MEDS: ATORVASTATIN CALCIUM 40 MG TAB PO SCH (08:59)
[2018-06-17] MEDS: SENNOSIDES/DOCUSATE SODIUM TAB PO SCH ×2 (08:59→20:00)
--- NOTE | 2018-06-17 10:21 | HOSPPROG ---
Hospitalist Progress Note Assessment/Plan: 82 yo male who presented after a fall with subsequent hip fx. While in ER, he developed word finding difficulty and was found to have an acute stroke. Imaging revealed left sided carotid artery stenosis. Dr. Krueger recommends CEA in a few weeks. He went to OR to have hip replacement, but a large draining wound on his chest was noted so a percutaneous screw fixation was performed instead. There was concern from orthopedics to put in a replacement w an infected wound. Subsequently, ID saw Lambert and treated the infection. He was seen by cardiology to get further evaluation of his heart prior to the CEA. Also, he was found to be diabetic during this stay. *Left MCA CVA-acute. Thought possibly 2/2 left VALERI, see below. -cont asa, statin -cont tele, pers reviewed/interp, shows NSR -outpt ZIO patch planned per Dr. Cam -Outpt Lexiscan prior to surgery w Dr Krueger *Carotid artery gyiofzlq-vyap-fgcxs, 70% with acute CVA -Dr. Krueger saw, surgery in a few weeks after patient recovers from hip surgery *Chest abscess - GBS and staph lugdunensis, appreciate ID assistance -cont po keflex x8 days *Left hip fracture - s/p percutaneous screw fixation POD #3 -was to have hip replacement, but not performed due to chest abscess and new dx diabetes *Thyroid nodule -needs further evaluation in the OP setting *newly diagnosed DM - A1c is 11 -cont basal/bolus insulin plus metformin, could probably dc on HS Lantus plus metformin with close outpt f/u -ADA diet, dietary education -RN education for insulin administration *dvt pplx - Lovenox *dispo - cont inpt, inpt rehab to evaluate tomorrow Subjective: Pt is in good spirits. Says his word finding difficulty resolved within 24 hrs of onset. No focal weakness. Pain is controlled. Less drainage from chest wound. No fevers. He feels comfortable with insulin injection and diabetic diet. Objective: Vital Signs Temp Pulse Resp BP Pulse Ox 36.7 C 79 18 102/61 98 06/17/18 08:00 06/17/18 08:00 06/17/18 08:00 06/17/18 08:00 06/17/18 08:00 Microbiology 06/15/18 01:25 Gram Stain - Final Chest - Swab Laboratory Results 06/17/18 04:45 06/17/18 04:45 06/16/18 06/17/18 06/18/18 05:59 05:59 05:59 Intake Total 200 750 Output Total 1200 700 400 Balance -1000 50 -400 PT 13.0 SEC (12.0-15.0) 06/11/18 12:00 INR 1.02 (0.83-1.16) 06/11/18 12:00 - Physical Exam Constitutional: no apparent distress Eyes: PERRL Ears, Nose, Mouth, Throat: moist mucous membranes Cardiovascular: regular rate and rhythym Respiratory: no respiratory distress, clear to auscultation Gastrointestinal: normoactive bowel sounds, soft, non-tender abdomen Skin: warm, other (chest wall dressing with minimal drainage, no surrounding erythema) Musculoskeletal: full muscle strength Neurologic: AAOx3 Psychiatric: interacting appropriately ICD10 Worksheet Patient Problems: Problems Problem Status Onset Carotid stenosis, left Acute Fracture of left hip Acute Hyperglycemia 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
--- NOTE | 2018-06-17 11:15 | PDCARPN ---
Cardiology Progress Note Assessment/Plan: Assessment: -Left MCA CVA -Severe Left Internal Carotid disease -New dx of DM (AIC of 11.9) Plan: -continiue Aspirin 81 mg daily -continue Atorvastatin 40 mg daily -plan for out pt Zio patch monitor -plan for out pt Lexiscan Nuclear Stress Test prior to CEA with Dr. Krueger -Will arrange above tests as well as follow up with me prior to surgery. -Will sign off and plan to see him in the office after his stress test and prior to his CEA. 06/16/18 08:10 06/17/18 11:14 Subjective: Lambert is doing well. He is resting comfortably in the chair. Tele demonstrates NSR, no arrhythmias. NO cardiac complaints. Objective: Vital Signs (8 Hrs) Temp Pulse Resp BP Pulse Ox 06/17/18 08:00 36.7 C 79 18 102/61 98 06/17/18 03:40 36.5 C 79 16 135/69 H 94 Intake/Output (24 Hrs) 06/16/18 06/17/18 06/18/18 05:59 05:59 05:59 Intake Total 200 750 Output Total 1200 700 400 Balance -1000 50 -400 Intake: Oral (ml) 200 750 Output: Urine (ml) 1200 700 400 Catheter 750 Urinal 450 700 400 Other: Intake Quantity Yes Sufficient Number of Voids Urinal 2 1 Result Diagrams: 06/17/18 04:45 06/17/18 04:45 - Physical Exam Neurologic: AAOx3, CN II-XII grossly intact Psychiatric: cooperative, interactive, following commands ICD10 Worksheet Patient Problems: Problems Problem Status Onset Carotid stenosis, left Acute Fracture of left hip Acute Hyperglycemia 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
[2018-06-17] MEDS: CEPHALEXIN 500 MG CAP PO SCH ×3 (14:35→21:04)
[2018-06-17] MEDS: INSULIN GLARGINE 100 UNITS/ML UNIT SC SCH (21:04)
[2018-06-18] MEDS: ENOXAPARIN 40 MG/0.4 ML SYR SC SCH (08:23)
[2018-06-18] MEDS: SENNOSIDES/DOCUSATE SODIUM TAB PO SCH ×2 (08:24→20:20)
--- NOTE | 2018-06-18 08:24 | SOAPPROG ---
PRINCESS Progress Note Assessment/Plan: Assessment/Plan: 82 Y M s/p fall c femoral neck hip fracture, word finding difficulty in ED c CVA thought to be 2/2 carotid stenosis, chest wall abscess-- likely infected sebaceous cyst--s/p I&D. S/p percutaneous screw fixation in light of infection. Seen and examined with Dr. Krueger. Chest wall dressing changed. Still a great deal of erythema, but mores dusky and induration improved, no fluctuance, wound appears clean. No need for further I&D. Will need at least qod wound packing dressing changes. Will likely need a formal cyst excision once more healed--its possible this could be done at same time as CEA. Appreciate ID, ortho, neuro, and medicine input. Plan for CEA in next few weeks. Activity per ortho. 20 lb foot flat weight bearing with walker, PT. SNF recommended per ortho. If d/c'ed soon, will have him f/u in office later in the week. S: thinks his chest feels better. says he is walking. O: alert, nad no wob rrr chest wall see above. abd soft neuro grossly intact 06/18/18 08:25 Objective: Vital Signs Temp Pulse Resp BP Pulse Ox 36.7 C 74 14 112/74 96 06/18/18 07:42 06/18/18 07:42 06/18/18 07:42 06/18/18 07:42 06/18/18 07:42 Microbiology 06/15/18 01:25 Gram Stain - Final Chest - Swab Laboratory Results 06/17/18 04:45 06/17/18 04:45 06/17/18 06/18/18 06/19/18 05:59 05:59 05:59 Intake Total 750 1650 Output Total 304 4365 Balance 50 -25 PT 13.0 SEC (12.0-15.0) 06/11/18 12:00 INR 1.02 (0.83-1.16) 06/11/18 12:00 ICD10 Worksheet Patient Problems: Problems Problem Status Onset Carotid stenosis, left Acute Fracture of left hip Acute Hyperglycemia 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
[2018-06-18] MEDS: ASPIRIN 81 MG CHEWABLE TAB PO SCH (08:25)
[2018-06-18] MEDS: CEPHALEXIN 500 MG CAP PO SCH ×3 (08:25→22:02)
[2018-06-18] MEDS: ATORVASTATIN CALCIUM 40 MG TAB PO SCH (08:25)
[2018-06-18] MEDS: metFORMIN HCL 500 MG TAB PO SCH ×2 (08:25→17:56)
[2018-06-18] MEDS: POLYETHYLENE GLYCOL 3350 17 GM PKT PO SCH (08:26)
[2018-06-18] MEDS: INSULIN REGULAR HUMAN 100 UNIT/ML UNIT SC SCH ×4 (08:34→22:03)
--- NOTE | 2018-06-18 14:48 | HOSPPROG ---
Hospitalist Progress Note Assessment/Plan: 82 yo male who presented after a fall with subsequent hip fx. While in ER, he developed word finding difficulty and was found to have an acute stroke. Imaging revealed left sided carotid artery stenosis. Dr. Krueger recommends CEA in a few weeks. He went to OR to have hip replacement, but a large draining wound on his chest was noted so a percutaneous screw fixation was performed instead. There was concern from orthopedics to put in a replacement w an infected wound. Subsequently, ID saw Lambert and treated the infection. He was seen by cardiology to get further evaluation of his heart prior to the CEA. Also, he was found to be diabetic during this stay. First encounter, chart reviewed. *Left MCA CVA-acute. -Thought possibly 2/2 left VALERI, see below. -cont asa, statin -cont tele,conts to show NSR -outpt ZIO patch planned per Dr. Cam -Outpt Lexiscan prior to surgery w Dr Krueger *Carotid artery ysketbba-riku-zhtkp, 70% with acute CVA -Dr. Krueger saw, surgery in a few weeks after patient recovers from hip surgery *Chest abscess -GBS and staph lugdunensis, appreciate ID assistance -cont po keflex x7 days *Left hip fracture -s/p percutaneous screw fixation POD #4 -was to have hip replacement, but not performed due to chest abscess and new dx diabetes *Thyroid nodule -needs further evaluation in the OP setting *newly diagnosed DM - A1c is 11 -cont basal/bolus insulin plus metformin, could probably dc on HS Lantus plus metformin with close outpt f/u -ADA diet, dietary education -RN education for insulin administration *dvt pplx - Lovenox *dispo - cont inpt, inpt rehab to evaluate tomorrow will cont PT/OT Subjective: Up in chair. Feeling good. No pain. Objective: Vital Signs Temp Pulse Resp BP Pulse Ox 36.3 C 83 17 102/62 96 06/18/18 12:00 06/18/18 12:00 06/18/18 12:00 06/18/18 12:00 06/18/18 12:00 Microbiology 06/15/18 01:25 Gram Stain - Final Chest - Swab Wound Culture - Final Strep Agalactiae Group B Staphylococcus Lugdunensis Laboratory Results 06/17/18 04:45 06/17/18 04:45 06/17/18 06/18/18 06/19/18 05:59 05:59 05:59 Intake Total 750 1650 500 Output Total 700 1675 350 Balance 50 -25 150 PT 13.0 SEC (12.0-15.0) 06/11/18 12:00 INR 1.02 (0.83-1.16) 06/11/18 12:00 - Physical Exam Constitutional: appears nourished, not in pain, chronically ill appearing Eyes: PERRL, anicteric sclera, EOMI Ears, Nose, Mouth, Throat: moist mucous membranes, hearing normal, ears appear normal Cardiovascular: regular rate and rhythym, No JVD, No edema Respiratory: no respiratory distress, no rales or rhonchi, reduced air movement Gastrointestinal: normoactive bowel sounds, No tenderness, No ascites Skin: warm, normal color, No mottled Musculoskeletal: joint tenderness, pain with ROM, generalized weakness Neurologic: AAOx3 Psychiatric: not anxious, not encephalopathic, thought process linear ICD10 Worksheet Patient Problems: Problems Problem Status Onset Carotid stenosis, left 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
--- NOTE | 2018-06-18 16:25 | ASMTCMCOM ---
CM Note CM Note Notes: Spoke with pt in the room and with Blank from [facility]. Per Blank, pt is appropriate for [facility], however [facility] will not have a bed until Monday and may not have one even then. Blank to get back to CM regarding bed availability. Pt expressed that as a contingency plan, he would not like to go out of the area for inpatient rehab, but would prefer to stay in the area for short term rehab and chose [facility]. Referral sent to [facility] and they have accepted. Discharge date TBD. CM to follow. D/C Plan: [facility] or [facility] SNF Date Signed: 06/18/2018 04:25 PM Electronically Signed By:Deandra Patel
[2018-06-18] MEDS: INSULIN GLARGINE 100 UNITS/ML UNIT SC SCH (22:02)
[2018-06-19] MEDS: INSULIN REGULAR HUMAN 100 UNIT/ML UNIT SC SCH ×4 (08:58→21:55)
[2018-06-19] MEDS: ENOXAPARIN 40 MG/0.4 ML SYR SC SCH (09:05)
[2018-06-19] MEDS: POLYETHYLENE GLYCOL 3350 17 GM PKT PO SCH (09:06)
[2018-06-19] MEDS: ACETAMINOPHEN 325 MG TAB PO PRN (09:06)
[2018-06-19] MEDS: ASPIRIN 81 MG CHEWABLE TAB PO SCH (09:07)
[2018-06-19] MEDS: CEPHALEXIN 500 MG CAP PO SCH ×3 (09:07→21:54)
[2018-06-19] MEDS: metFORMIN HCL 500 MG TAB PO SCH ×2 (09:07→18:37)
[2018-06-19] MEDS: ATORVASTATIN CALCIUM 40 MG TAB PO SCH (09:07)
[2018-06-19] MEDS: SENNOSIDES/DOCUSATE SODIUM TAB PO SCH ×2 (09:12→21:54)
--- NOTE | 2018-06-19 09:45 | HOSPPROG ---
Hospitalist Progress Note Assessment/Plan: 82 yo male who presented after a fall with subsequent hip fx. While in ER, he developed word finding difficulty and was found to have an acute stroke. Imaging revealed left sided carotid artery stenosis. Dr. Krueger recommends CEA in a few weeks. He went to OR to have hip replacement, but a large draining wound on his chest was noted so a percutaneous screw fixation was performed instead. There was concern from orthopedics to put in a replacement w an infected wound. Subsequently, ID saw Lambert and treated the infection. He was seen by cardiology to get further evaluation of his heart prior to the CEA. Also, he was found to be diabetic during this stay. *Left MCA CVA-acute. -Thought possibly 2/2 left VALERI, see below. -cont asa, statin -cont tele,conts to show NSR -outpt ZIO patch planned per Dr. Cam -Outpt Lexiscan prior to surgery w Dr Krueger *Carotid artery gesckpue-phlq-zopsj, 70% with acute CVA -Dr. Krueger saw, surgery in a few weeks after patient recovers from hip surgery *Chest abscess -GBS and staph lugdunensis, appreciate ID assistance -cont po keflex x7 days *Left hip fracture -s/p percutaneous screw fixation POD #5 -was to have hip replacement, but not performed due to chest abscess and new dx diabetes *Thyroid nodule -needs further evaluation in the OP setting *newly diagnosed DM - A1c is 11 -cont basal/bolus insulin plus metformin, could probably dc on HS Lantus plus metformin with close outpt f/u -ADA diet, dietary education -RN education for insulin administration *dvt pplx - Lovenox *dispo - cont inpt, inpt rehab to evaluate will cont PT/OT Subjective: Feeling well. Ate breakfast. Some pain. Objective: Vital Signs Temp Pulse Resp BP Pulse Ox 36.6 C 83 11 L 114/59 L 96 06/19/18 08:00 06/19/18 08:00 06/19/18 08:00 06/19/18 08:00 06/19/18 08:00 Microbiology 06/15/18 01:25 Gram Stain - Final Chest - Swab Wound Culture - Final Strep Agalactiae Group B Staphylococcus Lugdunensis Laboratory Results 06/17/18 04:45 06/17/18 04:45 06/18/18 06/19/18 06/20/18 05:59 05:59 05:59 Intake Total 1650 800 Output Total 1675 650 600 Balance -25 150 -600 PT 13.0 SEC (12.0-15.0) 06/11/18 12:00 INR 1.02 (0.83-1.16) 06/11/18 12:00 - Physical Exam Constitutional: appears nourished, not in pain Eyes: PERRL, anicteric sclera Ears, Nose, Mouth, Throat: moist mucous membranes, hearing normal Cardiovascular: No JVD, No edema Respiratory: no respiratory distress, reduced air movement Gastrointestinal: No tenderness, No ascites Skin: warm, normal color Musculoskeletal: no joint effusions, generalized weakness Neurologic: AAOx3 Psychiatric: interacting appropriately, not anxious, not encephalopathic ICD10 Worksheet Patient Problems: Problems Problem Status Onset Carotid stenosis, left 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
--- NOTE | 2018-06-19 12:45 | ASMTCMCOM ---
CM Note CM Note Notes: CM met with patient for dispo planning. CM spoke with Blank from Inpatient rehab. Blank is able to accept tomorrow. Patient is on board with staying for seven days and discharging home. CM offered to call brother Jesús. Patient stated he would call. CM spoke to Bev about this case and anticipate DC for tomorrow. CM to follow. Plan: [facility] inpatient rehab Date Signed: 06/19/2018 12:40 PM Electronically Signed By:Tsering Boland
[2018-06-19] MEDS: INSULIN GLARGINE 100 UNITS/ML UNIT SC SCH (21:54)
[2018-06-20] MEDS: INSULIN REGULAR HUMAN 100 UNIT/ML UNIT SC SCH ×4 (09:51→21:18)
[2018-06-20] MEDS: metFORMIN HCL 500 MG TAB PO SCH ×2 (09:52→18:08)
[2018-06-20] MEDS: POLYETHYLENE GLYCOL 3350 17 GM PKT PO SCH (10:36)
[2018-06-20] MEDS: ENOXAPARIN 40 MG/0.4 ML SYR SC SCH (10:36)
[2018-06-20] MEDS: ATORVASTATIN CALCIUM 40 MG TAB PO SCH (10:37)
[2018-06-20] MEDS: CEPHALEXIN 500 MG CAP PO SCH ×3 (10:37→21:18)
[2018-06-20] MEDS: ASPIRIN 81 MG CHEWABLE TAB PO SCH (10:37)
[2018-06-20] MEDS: ACETAMINOPHEN 325 MG TAB PO PRN (10:37)
[2018-06-20] MEDS: SENNOSIDES/DOCUSATE SODIUM TAB PO SCH ×2 (10:37→21:18)
--- NOTE | 2018-06-20 13:22 | HOSPPROG ---
Hospitalist Progress Note Assessment/Plan: Mr Dugan is an 82 yo male who presented after falling and sustaining a hip fx. While in ER he developed symptoms of word finding, had an acute stroke. Was noted to have left sided carotid artery stenosis. This will be addressed in a few weeks. Went to OR to have hip replacement, but a large draining wound on his chest was noted so a percutaneous screw fixation was performed instead. There was concern from orthopedics to put in a replacement w an infected wound. Subsequently, ID saw Lambert and treated the infection. He was seen by cardiology to get further evaluation of his heart prior to the CEA. Also, he was found to be diabetic during his stay. *Left MCA CVA-acute. -asa and statin -tele has been in sinus -appreciate cards seeing him -OP ZIO patch monitor -Lexiscan Nuclear stress test prior to surgery w Dr Krueger *Carotid artery znceiffa-xydw-bwjos, 70% -reviewed Dr Krueger note, surgery in a few weeks after patient recovers from hip surgery *large draining abscess on chest -draining purulent drainage -Dr Guerra to see *Left hip fracture -surgery on 06/14- had a percutaneous screw fixation -was to have hip replacement, but not performed due to chest abscess and new dx diabetes *Left hip pain -well managed *chest abscess (GBS) -has been there for a long time -Keflex 500 mg tid x 8 days *Thyroid nodule -needs further evaluation in the OP setting- *newly diagnosed DM -A1c is 11 -on sliding scale, Lantus and metformin -ADA diet -dietary has worked w him on diet -dc Lantus, glucoses are very low this morning * mild Leukocytosis-mild -resolved *plan: awaiting for insurance authorization Subjective: Karlos is feeling well this morning. No complaints. Objective: Vital Signs Temp Pulse Resp BP Pulse Ox 36.4 C 79 18 103/58 L 94 06/20/18 12:00 06/20/18 12:00 06/20/18 12:00 06/20/18 12:00 06/20/18 12:00 Laboratory Results 06/17/18 04:45 06/17/18 04:45 06/19/18 06/20/18 06/21/18 05:59 05:59 05:59 Intake Total 800 250 Output Total 650 1025 300 Balance 150 -1025 -50 PT 13.0 SEC (12.0-15.0) 06/11/18 12:00 INR 1.02 (0.83-1.16) 06/11/18 12:00 - Physical Exam Constitutional: no apparent distress, appears nourished, not in pain Eyes: PERRL Ears, Nose, Mouth, Throat: hearing normal Cardiovascular: regular rate and rhythym Respiratory: no respiratory distress Skin: warm Musculoskeletal: generalized weakness Psychiatric: interacting appropriately ICD10 Worksheet Patient Problems: Problems Problem Status Onset Carotid stenosis, left Acute Fracture of left hip Acute Hyperglycemia 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
--- NOTE | 2018-06-20 16:16 | ASMTCMCOM ---
CM Note CM Note Notes: CM spoke to Blank Colvin with inpatient rehab. Pt has [employer] Medicare Insurance as his primary. Blank submitted to obtain auth. CM to follow. Plan: [facility] Inpatient rehab Date Signed: 06/20/2018 04:15 PM Electronically Signed By:ROSEMARIE Miller
[2018-06-21] MEDS: INSULIN REGULAR HUMAN 100 UNIT/ML UNIT SC SCH ×3 (08:01→17:28)
[2018-06-21] MEDS: ENOXAPARIN 40 MG/0.4 ML SYR SC SCH (08:50)
[2018-06-21] MEDS: ATORVASTATIN CALCIUM 40 MG TAB PO SCH (08:51)
[2018-06-21] MEDS: metFORMIN HCL 500 MG TAB PO SCH ×2 (08:51→17:28)
[2018-06-21] MEDS: CEPHALEXIN 500 MG CAP PO SCH ×2 (08:51→16:14)
[2018-06-21] MEDS: ASPIRIN 81 MG CHEWABLE TAB PO SCH (08:51)
[2018-06-21] MEDS: SENNOSIDES/DOCUSATE SODIUM TAB PO SCH (08:51)
[2018-06-21] MEDS: POLYETHYLENE GLYCOL 3350 17 GM PKT PO SCH (08:53)
--- NOTE | 2018-06-21 13:22 | PDIAF ---
- Diagnosis Diagnosis: CVA, left hip fx, new diabetic, stenosis of left carotid Code Status: Full Code - Medication Management Discharge Medications: electronically signed and located in the Home Medication List. - Orders Services needed: Physical Therapy, Occupational Therapy, Speech Language Pathologist Diet Recommendation: ADA 2000 consistent carb Diet Texture: Regular Texture Diet Additional Instructions: 20 lb foot flat WB with walker and assistance x 6wks. PT/OT Please change chest wall wound every other day with 1/4 inch iodoform or plain gauze packing strip and gauze, tape. Ok for chest wall wound to get wet in shower. No submerging in baths or pools with it. continue sliding scale as done at [facility] (may not need insulin ) STOP Keflex on 06/25/18 at 14:00 - Follow Up Care Current Providers and Referrals: Puneet Naik MD [Medical Doctor] - follow up in 2 weeks Terrence Barroso MD [Medical Doctor] - (Left carodid w/ 70% occlusion was diagnosed during admission. There is also a thyroid nodule and chest wall wound that need following. F/u later this week--Th or Mon. Please call for an appt. ) Pravin Cam MD [Medical Doctor] - (PLAN FOR OUT PT ZIO PATCH MONITOR PLAN FOR OUT PT LEXISCAN BUCLEAR STRESS TEST LISBET BARROSO SEE IN OFFICE) Leslie Guerra MD [Medical Doctor] - 06/27/18 2:30 pm Patient,NotPresent [Primary Care Provider] - As per Instructions
--- NOTE | 2018-06-21 14:13 | ASMTDCNOTE ---
Case Management Discharge Discharge Order Complete? Answers: Yes Patient to Obtain Answers: Other Notes: [facility] Medications Transportation Arranged Answers: Other Notes: WC Faxed Final Orders Answers: Yes Agency/Facility Transfer Answers: Yes Report Printed & Faxed to Receiving Agency Discharge Comments Notes: D/w [employer]EL [employer]OTIVE TECHNICIAN, final orders faxed. Blank at [facility] notified. RN to call report Date Signed: 06/21/2018 02:13 PM Electronically Signed By:Parvin Beck RN
--- NOTE | 2018-06-21 14:14 | ASMTLACE ---
[facility] Length of stay for Answers: 7-13 days current admission Acuity / Level of Answers: Yes Care: Did the patient have an inpatient admission? # of Emergency department Answers: 1-2 visits in the last 6 months Score: 9 Date Signed: 06/21/2018 02:14 PM Electronically Signed By:Parvin Beck RN
[2018-06-21 16:37] VITALS: BP 109/58
--- NOTE | 2018-06-22 08:22 | GDS ---
[f rep st] DISCHARGE SUMMARY DISCHARGE DIAGNOSES: 1. Left MCA stroke. 2. Carotid artery stenosis, left side. 3. Large draining abscess on chest. 4. Left hip fracture. 5. Hip pain due to this. 6. Thyroid nodule. 7. Newly diagnosed diabetes. 8. Mild leukocytosis. CONSULTATION: During his stay: 1. Dr. Leslie Guerra. 2. Dr. Tim Ron. 3. Dr. Herndon. 4. Dr. Pravin Cam. Briefly, the patient is an 82-year-old gentleman who was admitted on 06/11 after sustaining a fall. He was noted to have a left hip fracture, it was not exactly clear, but something seemed off. When he fell he grabbed onto a pole to keep his balance and had a left gaze. Subsequently, he had a head CT and a stroke alert. The CT of the head and neck was found to have an estimated 60-70 percent stenosis of the left internal carotid artery. No large vessel occlusion. Because of his hip fracture, it was not felt he was a tPA candidate. He had a brain MRI that confirmed ischemia in the left middle cerebral, left posterior MCA, FIRE MEDIC and water shed territory. He was started on aspirin and statin therapy. It was noted that he had a significant tight left carotid. He was evaluated by Dr. Krueger and after he recovers from hip surgery , he will have a carotid endarterectomy. In regards to his hip fracture he had a percutaneous screw fixation. While in the OR it was noted that he had a chest abscess. He was seen and evaluated by Dr. Guerra. Antibiotics were prescribed. His hospital stay was also complicated with a newly diagnosed diabetes. He was treated for that with Lantus and metformin. Subsequently, he was discharged on 06/21 to inpatient rehabilitation for followup care. HOSPITAL COURSE PER PROBLEM: 1. Left MCA CVA. Aspirin and statin therapy. He has been in sinus rhythm. He will get a Lexiscan nuclear stress prior to surgery with Dr. Krueger. 2. Carotid artery stenosis. This is noted on the left side. He will get a CEA once he recovers from his hip surgery. 3. Large draining abscess on his chest. He was seen and evaluated by Dr. Guerra and treated. 4. Left hip fracture. He had surgery on 06/14, stable. 5. Hip pain, well managed. 6. Thyroid nodule. I explained to him that he needs further evaluation in the outpatient setting in regard to this. 7. Newly diagnosed diabetes. His A1c is 11. His glucose has improved nicely throughout his stay. 8. Mild leukocytosis, this resolved. DISCHARGE CONDITION: Stable. Blood pressure is 103/58, O2 sats on room air 94% , respiratory rate is 18, pulse is 79, temperature 36.9 Celsius. MEDICATIONS AT DISCHARGE: Please see the EMR. DISCHARGE INSTRUCTIONS: 1. To follow up with Dr. Krueger as scheduled. 2. To follow up with Dr. Naik in regard to his hip. 3. To get further evaluation of his thyroid nodule. TIME SPENT: Greater than 30 minutes discharging and coordinating the patient's care. Copy requested to: Dr. Evans Naik Dr. /[id number]/MODL MTDD
== END 2018-06-21 20:47 | DRG 480 ==
LOC: OBSVTOIN 13:59 → F3N 14:36
PROVIDERS: ADMIT Internal Medicine; ATTEND Student in an Organized Health Care Education/Training Program
PROC: 0QS735Z Reposition Left Upper Femur with External Fixation Device, Percutaneous Approach (ICD-10-PCS; principal; 2018-06-14 13:30)
PROC: 0J960ZZ Drainage of Chest Subcutaneous Tissue and Fascia, Open Approach (ICD-10-PCS; 2018-06-15)
DX: S72.002A Fracture of unspecified part of neck of left femur, initial encounter for closed fracture (principal); I63.512 Cerebral infarction due to unspecified occlusion or stenosis of left middle cerebral artery; L02.213 Cutaneous abscess of chest wall; I65.22 Occlusion and stenosis of left carotid artery; E04.1 Nontoxic single thyroid nodule; E11.9 Type 2 diabetes mellitus without complications; W01.0XXA Fall on same level from slipping, tripping and stumbling without subsequent striking against object, initial encounter; Y92.480 Sidewalk as the place of occurrence of the external cause
CPT/HCPCS: 70551-PN; 84484-ER; 92507-GN; 92523-GN; 96374; 97110-GP; 97116-GP; 97161-GP; 97165-GO; 97530-GO; 97530-GP; 97535-GO; C1713; C1769; J0171; J0690; J1650; J1815; J1885; J2370; J2704; J2795; J3010; Q9967

== ENCOUNTER 2018-06-19 11:38 | Inpatient (IN) | payer OTHER ==
[2018-06-21] MEDS ORDERED: ACETAMINOPHEN 325 MG TAB PO PRN (21:22)
[2018-06-21] MEDS ORDERED: HYDROCODONE/APAP 5/325 TAB PO PRN (21:22)
[2018-06-21] MEDS ORDERED: D50W 25 GM/50 ML SYR IVP PRN (21:23)
[2018-06-21] MEDS: CEPHALEXIN 500 MG CAP PO SCH (21:46)
[2018-06-22 06:17] LABS: PLATELET COUNT 363 10^3/uL (150-400)
[2018-06-22] MEDS: ATORVASTATIN CALCIUM 40 MG TAB PO SCH (08:51)
[2018-06-22] MEDS: ENOXAPARIN 40 MG/0.4 ML SYR SC SCH (08:51)
[2018-06-22] MEDS: ASPIRIN 81 MG CHEWABLE TAB PO SCH (08:52)
[2018-06-22] MEDS: metFORMIN HCL 500 MG TAB PO SCH ×2 (08:52→17:19)
[2018-06-22] MEDS: CEPHALEXIN 500 MG CAP PO SCH ×3 (08:52→21:49)
[2018-06-22] MEDS: INSULIN LISPRO 100 UNIT/ML SC SCH ×3 (08:52→17:09)
[2018-06-22] MEDS: SENNOSIDES/DOCUSATE SODIUM TAB PO SCH ×2 (08:52→21:49)
--- NOTE | 2018-06-22 11:54 | GHP ---
[f rep st] HISTORY AND PHYSICAL POST ADMISSION PHYSICIAN EVALUATION AND REHABILITATION TREATMENT PLAN DATE OF ADMISSION: 06/21/2018 DATE OF EVALUATION: 06/22/2018 TIME OF EVALUATION: 1020 REFERRING FACILITY: [facility]. IMPAIRMENT GROUP: [id number]. DATE OF ONSET: 06/11/2018.. REHABILITATION DIAGNOSIS: Debility, status post left hip fracture and CVA. REFERRING PROVIDER: Amy Rogers NP CONSULTING PHYSICIANS: There were consultations with neurology, Dr. Ron; general surgery, Dr. Krueger; infectious disease, Dr. Gurera; and Cardiology, Dr. Cam. ETIOLOGIC DIAGNOSIS: Unilateral hip fracture. DATE OF SURGERY: 06/15/2018. HISTORY OF PRESENT ILLNESS: This patient fell and was brought to the emergency department with left hip pain. He was found to have a left femoral neck fracture. While in the emergency department, he developed difficulty with word finding. Head CT was negative for any acute findings. CT angiogram of the neck showed 60-70 percent stenosis of the proximal right internal carotid artery. He had a brain MRI, which showed ischemia in the left middle cerebral and left posterior middle cerebral artery, as well as the posterior cerebral artery watershed territory. He was also found to have an abscess in the center of his chest. Due to the presence of the infection, he underwent percutaneous screw fixation of the left hip rather than a partial hip hemiarthroplasty. He was treated with antibiotics for the abscess. He was begun on aspirin and statin therapy. He will be evaluated for a carotid endarterectomy after his discharge from rehabilitation. Hospital stay was also complicated by newly diagnosed by diabetes, which has responded well to metformin. He is currently without any acute complaints. He reports he has minor interference in sleep from the sequential compression devices, but overall is sleeping well. He is not in pain. STUDIES AND LABS: In the hospital, he had leukocytosis on CBC initially, but this resolved. He developed anemia. He had normal hemoglobin and hematocrit of 14.7 and 44.1 on 06/11/2018, and on 06/17/2018, his hemoglobin and hematocrit were 12.1 and 35.3. PT and PTT were normal. Serum chemistry initially showed hyponatremia with a sodium of 132. He had an anion gap of 17. He had a markedly elevated glucose at 482. Hemoglobin A1c was 11.9. Lipid panel was benign. LDL was 85. Liver functions were normal. He had improved hyponatremia with a sodium of 134 on 06/17/2018. PRECAUTIONS: He is a fall risk and he has orthopedic precautions of touchdown weightbearing on the left lower extremity. ACTIVE COMORBIDITIES: He has no tier 1, tier 2 or tier 3 comorbidities. PAST MEDICAL HISTORY: He denies any history of medical illnesses or surgeries. PRE-HOSPITAL MEDICATIONS: He was on no medications. ADMISSION MEDICATIONS: 1. Acetaminophen 650 mg p.o. q.4 hours p.r.n. 2. Aspirin 81 mg p.o. daily. 3. Atorvastatin 40 mg p.o. daily. 4. Cephalexin 500 mg p.o. three times daily through the morning of 06/25/2018. 5. Enoxaparin 40 mg subcutaneous daily. 6. Hydrocodone/acetaminophen 5/325 one to two tabs p.o. q.4 hours p.r.n. 7. Insulin lispro per sliding scale. 8. Metformin 500 mg p.o. twice daily. 9. Senna/docusate 1-2 tabs p.o. twice daily. ALLERGIES: There are no known drug allergies. SOCIAL HISTORY: He lives alone. He is unmarried and has no children. He works at the [employer]. He is a nonsmoker and nondrinker. 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 FAMILY HISTORY: Noncontributory. REVIEW OF SYSTEMS: He denies cough or dyspnea. He denies fevers or chills. He denies recent weight change. He denies nausea, vomiting, constipation, or diarrhea. He reports he usually moves his bowels approximately every 4 days. He has a good appetite. He denies urinary frequency or dysuria. He denies joint swelling or joint pain other than his left hip, which is much improved after his surgery. Regarding neurologic symptoms he denies vision changes, weakness, numbness or tingling of the extremities, difficulty swallowing, or headache. Otherwise, a 10-point review of systems is negative. PHYSICAL EXAM: VITAL SIGNS: Blood pressure is 112/73, heart rate is 88, respiratory rate is 18, oxygen saturation is 98% on room air, temperature is 36.8 degrees centigrade. His weight is 72.6 kg for a body mass index of 23.6. GENERAL: This is a well-nourished, well-developed man, appears his chronologic age, dressed in street clothes, sitting in a chair, cooperative and in no acute distress. HEENT: Extraocular movements are intact. Pupils are equal, round, reactive to light. Mucous members are moist. Dentition is in good condition. He has an uncrowded airway, Mallampati class 1. NECK: Supple. HEART: Regular rate and rhythm with no murmurs, rubs, or gallops. LUNGS: Clear to auscultation bilaterally. ABDOMEN: Soft, nontender, nondistended with normoactive bowel sounds and no hepatosplenomegaly. EXTREMITIES: There is no cyanosis or clubbing. There is trace to 1+ pretibial edema of the left lower extremity. NEUROLOGIC: He is alert and oriented x3. Cranial nerves 2-12 are grossly intact. There is no focal weakness. Sensation is intact to light touch. He has pronator drift on the right. Rapid alternating movements are normal. Cerebellar testing is normal. He is able to ambulate with a front- wheeled walker, maintaining touchdown weightbearing on the left foot. SKIN: He has approximately a 5 x 5 cm area of dusky erythema in the center of his chest with a central ulceration approximately 0.5 cm. There is iodoform gauze packed into the central ulceration. There is minimal drainage and no purulence. His left hip incision is glued with no erythema or discharge. He has no decubitus ulcers. CURRENT LEVEL OF FUNCTION: Per the preadmission screen, he was on a regular diet and was independent with feeding. Grooming required setup, dressing upper body required setup and lower body required minimal assist. He was continent of bowel and bladder. He was independent with bed mobility. He was able to transfer with minimal to contact guard assist and voice cues. He used a front- wheeled walker. Balance required contact guard to minimal assist for dynamic activities. He had good endurance. He was able to ambulate 120 feet with minimal to moderate assist and voice cues. He had loss of balance requiring assistance to correct. Communication and cognition were normal. On today's exam, there are no significant changes from the preadmission screen. IMPRESSION: This is an 82-year-old man who suffered a fall and a left hip fracture. In the emergency department, he was noted to have difficulty with speech, and a stroke alert was called. CT angiogram showed a 60-70 percent stenosis of the left internal carotid artery. Subsequent MRI of the brain showed watershed infarcts in the left posterior and middle cerebral artery territories. His expressive aphasia resolved spontaneously. He was begun on an aspirin and statin. He had percutaneous pinning of the left femoral neck fracture and has touchdown weightbearing restriction on the left lower extremity. Incidental findings during his hospital stay included a chest abscess, which was treated with incision and drainage, thyroid nodules, and newly diagnosed diabetes mellitus type 2. His goal is to complete a rehabilitation stay and then return home with assistance from friends and colleagues and home health care as needed. He will have therapy with physical therapy and occupational therapy for 90 minutes per day for each discipline on 5-7 days of the week. His expected duration of stay is 5-7 days. It is anticipated that, upon discharge, he will benefit from home health services, including nursing, occupational therapy, and physical therapy. PLAN: 1. Left hip fracture, status post percutaneous pinning with touchdown weightbearing on the left lower extremity. PT and OT to optimize mobility and activities of daily living toward discharge home with modified independent to independent level. 2. CVA. Appears mostly to have recovered from the symptoms, though he has a right pronator drift. Continue aspirin and atorvastatin and monitor blood pressure. 3. Diabetes mellitus type 2. He is on metformin 500 mg twice daily as well as a sliding scale of lispro insulin. If he consistently requires supplemental insulin, will increase metformin to 1000 mg twice daily. 4. Abscess. Will continue antibiotics as ordered through mid day 06/25/2018. Will have daily dressing changes and will be monitored for adequacy of healing. 5. Carotid artery occlusion, 60-70 percent on the left. He will follow up with Dr. Krueger of General Surgery after his discharge from rehabilitation to consider a carotid endarterectomy. 6. Thyroid nodules. I will add a TSH to labs that were drawn this morning. He will follow up with Endocrinology. 7. Likely osteoporosis with hip fracture from a ground level fall. I will check a vitamin D level and will treat with vitamin D supplement if necessary. 8. Prophylaxis. Continue enoxaparin as ordered out of the hospital for DVT prophylaxis. He will likely need this for a total of 4-5 weeks since his hip fracture. Followup. He will see general surgeon Dr. Krueger regarding the carotid artery occlusion after his discharge from inpatient rehabilitation. He will follow up with orthopedic surgeon, Dr. Naik, in approximately 2 weeks. He will follow up with tube coverer, Dr. Pravin Cam, for heart rhythm monitoring due to CVA and for nuclear stress test prior to carotid endarterectomy. He will follow up with Infectious Disease, Dr. Guerra, scheduled for 06/27/2018 at 2:30 p.m. /[id number]/MODL MTDD
[2018-06-22] MEDS: CHOLECALCIFEROL VIT D3 2,000 UNITS TAB/CAP PO SCH (13:46)
[2018-06-22] MEDS: LEVOTHYROXINE 112 MCG TAB PO SCH (13:47)
[2018-06-22] MEDS ORDERED: PNEUMOC 13-VAL CONJ-DIP CRM/PF 0.5 ML SYR (PREVNAR 13) IM ONE (14:19)
[2018-06-23] MEDS: LEVOTHYROXINE 112 MCG TAB PO SCH (05:58)
[2018-06-23] MEDS: SENNOSIDES/DOCUSATE SODIUM TAB PO SCH ×2 (09:02→21:00)
[2018-06-23] MEDS: metFORMIN HCL 500 MG TAB PO SCH ×2 (09:03→17:10)
[2018-06-23] MEDS: ASPIRIN 81 MG CHEWABLE TAB PO SCH (09:03)
[2018-06-23] MEDS: CHOLECALCIFEROL VIT D3 2,000 UNITS TAB/CAP PO SCH (09:03)
[2018-06-23] MEDS: CEPHALEXIN 500 MG CAP PO SCH ×3 (09:04→20:59)
[2018-06-23] MEDS: ATORVASTATIN CALCIUM 40 MG TAB PO SCH (09:04)
[2018-06-23] MEDS: ENOXAPARIN 40 MG/0.4 ML SYR SC SCH (09:04)
--- NOTE | 2018-06-23 09:07 | HOSPPROG ---
Hospitalist Progress Note Assessment/Plan: * L hip fracture s/p pinning * cont PT/OT * Left CVA * cont asa and lipitor * Chest wall abscess * cont abx for a few more days\ * cont wound care - packing in * DM2 * blood sugars pretty good * cont metformin * Left carotid stenosis * f/u with surgery * DVT proph * lovenox Subjective: feels well. no new complaints Objective: Vital Signs Temp Pulse Resp BP Pulse Ox 36.7 C 103 H 16 125/79 H 94 06/23/18 08:00 06/23/18 08:00 06/23/18 08:00 06/23/18 08:00 06/23/18 08:00 Laboratory Results 06/22/18 06:11 06/22/18 06:11 06/22/18 06/23/18 06/24/18 05:59 05:59 05:59 Intake Total 1200 250 Output Total 700 350 Balance -700 850 250 - Physical Exam Constitutional: no apparent distress, appears nourished, not in pain Eyes: anicteric sclera, EOMI Ears, Nose, Mouth, Throat: moist mucous membranes Cardiovascular: regular rate and rhythym Respiratory: no respiratory distress Gastrointestinal: normoactive bowel sounds, soft, non-tender abdomen, no palpable masses Skin: warm, other (chest wall abscess - packing in with surrounding erythema and induration) Neurologic: AAOx3 Psychiatric: interacting appropriately, not anxious, not encephalopathic, thought process linear ICD10 Worksheet Patient Problems: Problems Problem Status Onset Carotid stenosis, left Acute Fracture of left hip Acute Hyperglycemia 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
[2018-06-23] MEDS: INSULIN LISPRO 100 UNIT/ML SC SCH ×3 (12:25→17:10)
[2018-06-24] MEDS: LEVOTHYROXINE 112 MCG TAB PO SCH (05:57)
--- NOTE | 2018-06-24 08:33 | HOSPPROG ---
Hospitalist Progress Note Assessment/Plan: * L hip fracture s/p pinning * cont PT/OT * Left CVA * cont asa and lipitor * Chest wall abscess * cont abx for a few more days\ * cont wound care - packing in * DM2 * blood sugars pretty good * cont metformin * Left carotid stenosis * f/u with surgery * DVT proph * lovenox Subjective: no new complaints Objective: Vital Signs Temp Pulse Resp BP Pulse Ox 36.4 C 80 16 120/100 H 97 06/23/18 17:55 06/23/18 17:55 06/23/18 17:55 06/23/18 17:55 06/23/18 17:55 Laboratory Results 06/22/18 06:11 06/22/18 06:11 06/23/18 06/24/18 06/25/18 05:59 05:59 05:59 Intake Total 1200 1690 Output Total 350 500 Balance 850 1190 - Physical Exam Constitutional: no apparent distress, appears nourished, not in pain Eyes: anicteric sclera Ears, Nose, Mouth, Throat: moist mucous membranes Cardiovascular: regular rate and rhythym, no murmur, rub, or gallop Respiratory: no respiratory distress, no rales or rhonchi, clear to auscultation Neurologic: AAOx3 Psychiatric: interacting appropriately, not anxious, not encephalopathic, thought process linear ICD10 Worksheet Patient Problems: Problems Problem Status Onset Carotid stenosis, left Acute Fracture of left hip Acute Hyperglycemia 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
[2018-06-24] MEDS: CEPHALEXIN 500 MG CAP PO SCH ×3 (09:29→21:05)
[2018-06-24] MEDS: SENNOSIDES/DOCUSATE SODIUM TAB PO SCH ×2 (09:29→21:05)
[2018-06-24] MEDS: ENOXAPARIN 40 MG/0.4 ML SYR SC SCH (09:29)
[2018-06-24] MEDS: ASPIRIN 81 MG CHEWABLE TAB PO SCH (09:29)
[2018-06-24] MEDS: CHOLECALCIFEROL VIT D3 2,000 UNITS TAB/CAP PO SCH (09:29)
[2018-06-24] MEDS: metFORMIN HCL 500 MG TAB PO SCH ×2 (09:30→17:12)
[2018-06-24] MEDS: ATORVASTATIN CALCIUM 40 MG TAB PO SCH (09:30)
[2018-06-24] MEDS: INSULIN LISPRO 100 UNIT/ML SC SCH ×3 (09:30→17:05)
[2018-06-25] MEDS: LEVOTHYROXINE 112 MCG TAB PO SCH (05:59)
[2018-06-25] MEDS: metFORMIN HCL 500 MG TAB PO SCH ×2 (07:20→18:04)
[2018-06-25] MEDS: INSULIN LISPRO 100 UNIT/ML SC SCH ×3 (07:23→17:32)
[2018-06-25] MEDS: ENOXAPARIN 40 MG/0.4 ML SYR SC SCH (08:48)
[2018-06-25] MEDS: CEPHALEXIN 500 MG CAP PO SCH (08:48)
[2018-06-25] MEDS: ASPIRIN 81 MG CHEWABLE TAB PO SCH (08:48)
[2018-06-25] MEDS: CHOLECALCIFEROL VIT D3 2,000 UNITS TAB/CAP PO SCH (08:48)
[2018-06-25] MEDS: SENNOSIDES/DOCUSATE SODIUM TAB PO SCH ×2 (08:48→20:49)
[2018-06-25] MEDS: ATORVASTATIN CALCIUM 40 MG TAB PO SCH (08:48)
--- NOTE | 2018-06-25 09:34 | SOAPPROG ---
SOAP Progress Note Assessment/Plan: Assessment: Left hip fracture, status post percutaneous pinning with touchdown weightbearing on the left lower extremity. * Independent in his room. Ambulated 300 ft with standby assist. Climbed and descended 8 stairs with 1 rail and a crutch, contact guard assist. Independent with ADLs, except modified independent for toilet transfers and minimal assist for bathing. * Continue PT and OT to optimize mobility and activities of daily living toward discharge home with modified independent to independent level. CVA. Appears mostly to have recovered from the symptoms, though he has a right pronator drift. Continue aspirin and atorvastatin and monitor blood pressure. * Follow-up with Dr. Krueger after discharge for consideration of left carotid endarterectomy. Diabetes mellitus type 2. Increased metformin from 500 mg twice daily to 1000 mg twice daily. He may be able to discharge without a sliding scale of lispro insulin. Abscess. Completing cephalexin mid day today, 06/25/2018. Will have daily dressing changes and will be monitored for adequacy of healing. Carotid artery occlusion, 60-70 percent on the left. He will follow up with Dr. Krueger of General Surgery after his discharge from rehabilitation to consider a carotid endarterectomy. Thyroid nodules. Incidental finding during his hospitalization. Hypothyroid on labs. He will follow up with Endocrinology. Hypothyroidism. TSH 16.3 on 06/22/2018. Initiated levothyroxine with conservative weight based dosing, at 115 mcg daily. He should have follow-up TSH in 4-6 weeks, early to mid July. Likely osteoporosis with hip fracture from a ground level fall. Low vitamin-D level at 21.4 on 06/22/2018. Initiated cholecalciferol 5000 units daily. Prophylaxis. Continue enoxaparin as ordered out of the hospital for DVT prophylaxis. Discussed with pharmacy. Provided discount card for free 30 days of enoxaparin, which will suffice following discharge for DVT prophylaxis with recent hip fracture. DISPOSITION: Attended staffing, 15 min, 06/25/2018. Discussed with case management, dietitian, pharmacy, PT, OT. Lives alone in apartment with 2 platform steps down to enter. Needs to be independent with platform steps, car transfer, and mobility and ADLs at night. Discharge date set for 06/27/2018. Followup. He will see general surgeon Dr. Krueger regarding the carotid artery occlusion after his discharge from inpatient rehabilitation. He will follow up with orthopedic surgeon, Dr. Naik, in approximately 2 weeks. He will follow up with [facility] former brace end, Dr. Pravin Cam, for heart rhythm monitoring due to CVA and for nuclear stress test prior to carotid endarterectomy. He will follow up with Infectious Disease, Dr. Guerra, scheduled for 06/27/2018 at 2:30 p.m. 06/25/18 11:44 Subjective: No complaints. Sleeping well. Not in pain. No cough or dyspnea, no fevers or chills. Objective: Vital Signs Temp Pulse Resp BP Pulse Ox 36.6 C 66 12 122/65 H 94 06/25/18 07:21 06/25/18 07:21 06/25/18 07:21 06/25/18 07:21 06/25/18 07:21 Laboratory Results 06/22/18 06:11 06/22/18 06:11 06/24/18 06/25/18 06/26/18 05:59 05:59 05:59 Intake Total 1690 1480 Output Total 500 550 Balance 1190 930 Physical Exam - Physical Exam General Appearance: WD/WN, alert, no apparent distress Respiratory: normal breath sounds, No crackles, No rhonchi, No wheezing Cardiac/Chest: regular rate, rhythm, No diastolic murmur, No systolic murmur Skin: normal color, warm/dry, other (Wound over sternum with approximately 5 x 5 cm area of dusky erythema. Nontender, no swelling. Minimal whitish slough in wound bed. Wound is approximately 1/4 by 1/2 cm, 1-2 mm deep, possibly some tunneling in the cephalad direction.) Neuro/Psych: alert, normal mood/affect, oriented x 3 ICD10 Worksheet Patient Problems: Problems Problem Status Onset Carotid stenosis, left Acute Fracture of left hip Acute Hyperglycemia 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
--- NOTE | 2018-06-25 09:35 | PDOREHIP ---
Admission [facility] - Admission - 3 Day Assessment Period Admission Date/Day 1: 06/21/18 Day 2: 06/22/18 Day 3: 06/23/18 - Active Diagnoses Comorbidities and Co-existing Conditions at Admission: 44540. None of the Above - Skin Conditions Unhealed Pressure Ulcer (1 or more/Stage 1 or >)-Admission: 0. No # Stage 1 Pressure Ulcers-Admission: 0 # Stage 2 Pressure Ulcers-Admission: 0 # Stage 3 Pressure Ulcers-Admission: 0 # Stage 4 Pressure Ulcers-Admission: 0 # Unstageable Pressure Ulcers (Non-remove Dress)-Admission: 0 # Unstageable Pressure Ulcers (Slough/Eschar)-Admission: 0 # Unstageable Pressure Ulcers (Deep Tissue Injury)-Admission: 0
[2018-06-26] MEDS: LEVOTHYROXINE 112 MCG TAB PO SCH (06:11)
[2018-06-26] MEDS: SENNOSIDES/DOCUSATE SODIUM TAB PO SCH ×2 (08:29→21:24)
[2018-06-26] MEDS: CHOLECALCIFEROL VIT D3 2,000 UNITS TAB/CAP PO SCH (08:29)
[2018-06-26] MEDS: ENOXAPARIN 40 MG/0.4 ML SYR SC SCH (08:30)
[2018-06-26] MEDS: ATORVASTATIN CALCIUM 40 MG TAB PO SCH (08:30)
[2018-06-26] MEDS: ASPIRIN 81 MG CHEWABLE TAB PO SCH (08:30)
[2018-06-26] MEDS: metFORMIN HCL 500 MG TAB PO SCH ×2 (08:31→17:33)
[2018-06-26] MEDS: INSULIN LISPRO 100 UNIT/ML SC SCH ×3 (08:31→17:33)
--- NOTE | 2018-06-26 09:56 | SOAPPROG ---
SOAP Progress Note Assessment/Plan: Assessment: Left hip fracture, status post percutaneous pinning with touchdown weightbearing on the left lower extremity. * Initial functional independence measure is 97 on 06/25/2018. Independent in his room. Ambulated 300 ft with standby assist. Climbed and descended 8 stairs with 1 rail and a crutch, contact guard assist. Independent with ADLs, except modified independent for toilet transfers and minimal assist for bathing. * Continue PT and OT to optimize mobility and activities of daily living toward discharge home with modified independent to independent level. CVA. Appears mostly to have recovered from the symptoms. Right pronator drift on admission exam has resolved. Continue aspirin and atorvastatin and monitor blood pressure. * Follow-up with Dr. Krueger after discharge for consideration of left carotid endarterectomy. Diabetes mellitus type 2. Increased metformin from 500 mg twice daily to 1000 mg twice daily starting afternoon of 06/25/2018. He may be able to discharge without a sliding scale of lispro insulin. Abscess. Completing cephalexin mid day 06/25/2018. Healing well. Continue daily dressing changes. Carotid artery occlusion, 60-70 percent on the left. He will follow up with Dr. Krueger of General Surgery after his discharge from rehabilitation to consider a carotid endarterectomy. Thyroid nodules. Incidental finding during his hospitalization. Hypothyroid on labs. He will follow up with Endocrinology. Hypothyroidism. TSH 16.3 on 06/22/2018. Initiated levothyroxine with conservative weight based dosing, at 115 mcg daily. He should have follow-up TSH in 4-6 weeks, early to mid July. Likely osteoporosis with hip fracture from a ground level fall. Low vitamin-D level at 21.4 on 06/22/2018. Initiated cholecalciferol 5000 units daily. Prophylaxis. Continue enoxaparin as ordered out of the hospital for DVT prophylaxis. Discussed with pharmacy. Provided discount card for free 30 days of apixaban, which will suffice following discharge for DVT prophylaxis with recent hip fracture. DISPOSITION: Attended staffing, 15 min, 06/25/2018. Discussed with case management, dietitian, pharmacy, PT, OT. Lives alone in apartment with 2 platform steps down to enter. Needs to be independent with platform steps, car transfer, and mobility and ADLs at night. Discharge date set for 06/27/2018. Followup. He will see general surgeon Dr. Krueger regarding the carotid artery occlusion after his discharge from inpatient rehabilitation. He will follow up with orthopedic surgeon, Dr. Naik, in approximately 2 weeks. He will follow up with manufacturer's service representative, Dr. Pravin Cam, for heart rhythm monitoring due to CVA and for nuclear stress test prior to carotid endarterectomy. He will follow up with Infectious Disease, Dr. Guerra, scheduled for 06/27/2018 at 2:30 p.m. 06/26/18 11:11 Subjective: No complaints. Slept well. Not in pain. No cough or dyspnea, no fevers or chills. Has not moved his bowels but has no abdominal discomfort. Objective: Vital Signs Temp Pulse Resp BP Pulse Ox 36.5 C 81 16 136/68 H 92 06/26/18 06:14 06/26/18 06:14 06/26/18 06:14 06/26/18 06:14 06/26/18 06:14 Laboratory Results 06/22/18 06:11 06/22/18 06:11 06/25/18 06/26/18 06/27/18 05:59 05:59 05:59 Intake Total 1480 500 200 Output Total 550 700 Balance 930 -200 200 Physical Exam - Physical Exam General Appearance: WD/WN, alert, no apparent distress Respiratory: No respiratory distress, No accessory muscle use Skin: normal color, warm/dry Neuro/Psych: no motor/sensory deficits, alert, normal mood/affect, oriented x 3 , abnormal gait (Ambulating in the vergara with physical therapy, appears to be complying with touchdown weight-bearing restriction on the left. Uses front wheeled walker.) ICD10 Worksheet Patient Problems: Problems Problem Status Onset Carotid stenosis, left Acute Fracture of left hip Acute Hyperglycemia 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
--- NOTE | 2018-06-26 14:57 | GDS ---
[f rep st] DISCHARGE SUMMARY ADMITTING DIAGNOSIS: Debility status post left femoral neck fracture and percutaneous pinning. DISCHARGE DIAGNOSES: Debility status post left femoral neck fracture and percutaneous pinning. OTHER DISCHARGE DIAGNOSES: 1. Chest wall abscess and cellulitis. 2. Hypothyroidism. 3. Diabetes mellitus type 2. 4. Cerebrovascular accident. 5. Left carotid artery occlusion. 6. Likely osteoporosis. 7. Thyroid nodules. COMPLICATIONS: There were none. CONSULTATIONS: There were none. PROCEDURES: There were none. HISTORY AND HOSPITAL COURSE: This patient was admitted from [facility]. He had been admitted there on 06/11/2018. He had suffered a fall and had left hip pain. He was found to have a left femoral neck fracture. In the emergency department, he developed difficulty with word finding and was eventually found to have had a stroke by brain MRI showing ischemia in the left middle cerebral and left posterior middle cerebral arteries and the posterior cerebral artery in a watershed distribution. CT angiogram showed a 60% to 70% stenosis of the proximal right internal carotid artery. He was also found to have an abscess in the center of his chest. Due to the presence of an infection, he underwent percutaneous pinning of the hip rather than hemiarthroplasty and was discharged to rehabilitation on touchdown weightbearing status on the left lower extremity. Other incidental findings in the hospital: He was diagnosed with diabetes mellitus type 2 and he had thyroid nodules noted on imaging. He underwent I and D of the abscess and was placed on antibiotics. He was started on atorvastatin and aspirin for the CVA. He was started on metformin and insulin for diabetes. He did well in rehabilitation and recovered independence quickly. He was able to ambulate 350 feet with standby assist. He climbed and descended 8 stairs with 1 rail and a crutch with contact guard assist. He was independent with ADLs except he was modified independent for toilet transfers and requiring minimal assist for bathing. He recovered fully from symptoms of CVA. On admission, there was a right pronator drift which resolved during his stay. Regarding diabetes mellitus type 2, his metformin was increased from 500 mg twice a day to 1000 mg twice a day starting in the afternoon of 06/25/2018. He still had somewhat elevated blood sugars. Fasting, on 06/26/2018 was 164, and before lunch he was at 163. Regarding his abscess over his sternum, he completed cephalexin on 06/25/2018. He had a shallow ulcer with granulation tissue at the base and appeared to be healing well. TSH was tested due to the incidental finding of thyroid nodules. His TSH was high at 16. He was begun on levothyroxine. He was treated with enoxaparin as ordered out of the hospital for DVT prophylaxis. Upon discharge, he is given a card for a free month of apixaban which should be enough to cover his DVT risk. DISPOSITION: He is discharging home. CONDITION: Good. ACTIVITY: Ad inocente, but he must maintain touchdown weightbearing of the left lower extremity until followup with Orthopedics. DIET: Regular. ALLERGIES: There are no known drug allergies. MEDICATIONS ON DISCHARGE: 1. Apixaban 2.5 mg p.o. b.i.d. 2. Atorvastatin 40 mg p.o. daily. 3. Cholecalciferol 2000 units p.o. daily. 4. Levothyroxine 112 mcg p.o. daily. 5. Metformin 1000 mg p.o. b.i.d. 6. Aspirin 81 mg p.o. daily. 7. Acetaminophen 650 mg p.o. q.4 h. p.r.n. 8. Senna 1-2 tabs p.o. b.i.d. ISSUES TO BE ADDRESSED AT FOLLOWUP: 1. Chest wall abscess with healing ulceration. He will follow up with Infectious Disease, Dr. Leslie Guerra, on 06/27/2018 at 2:30 p.m. 2. Left femoral neck fracture. Status post percutaneous pinning. He will follow up with orthopedic surgeon, Dr. Puneet Naik, on 07/02/2018 at 2:45 p.m. 3. Left carotid artery occlusion. He will follow up with metal mold dresser, Dr. Pravin Cam for cardiac screening prior to surgery on 07/09/2018 and with surgeon , Dr. Terrence Krueger, on 07/11/2018. 4. Mobility. He will continue physical therapy after his discharge and can follow up with his primary care provider. 5. Diabetes mellitus, type 2. It is unclear whether metformin alone will be adequate for sufficient control. He can follow up with primary care or possibly with Endocrinology. 6. Likely osteoporosis. Continue cholecalciferol. He had a low vitamin D during his stay. He could follow up with primary care and should consider followup with Endocrinology for medical management of osteoporosis. 7. Hypothyroidism. Begun conservatively on levothyroxine at 112 mcg daily. Advise followup TSH in 4-6 weeks which would be early to mid July. Greater than 30 minutes was spent on this discharge including medication reconciliation, coordination of care, and counseling patient. /[id number]/MODL [email or web address]
--- NOTE | 2018-06-26 16:20 | PDOREHIP ---
Admission [facility] - Admission - 3 Day Assessment Period Admission Date/Day 1: 06/21/18 Day 2: 06/22/18 Day 3: 06/23/18 - Active Diagnoses Comorbidities and Co-existing Conditions at Admission: 13217. None of the Above Discharge [facility] - Discharge - 3 Day Assessment Period 2 Days Prior to Anticipated Discharge Date: 06/25/17 1 Day Prior to Anticipated Discharge Date: 06/26/17 Anticipated Discharge Date: 06/27/17 - Discharge Skin Conditions Unhealed Pressure Ulcer (1 or more/Stage 1 or >)-Discharge: 0. No # Stage 1 Pressure Ulcers-Discharge: 0 # Stage 2 Pressure Ulcers-Discharge: 0 # of These Stage 2 Pressure Ulcers Present on Admission: 0 # Stage 3 Pressure Ulcers-Discharge: 0 # of These Stage 3 Pressure Ulcers Present on Admission: 0 # Stage 4 Pressure Ulcers-Discharge: 0 # of These Stage 4 Pressure Ulcers Present on Admission: 0 # Unstageable Pressure Ulcers (Non-remove Dress)-Discharge: 0 # These Unstageable Pressure Ulcers (NRD)-Present on Admit: 0 # Unstageable Pressure Ulcers (Slough/Eschar)-Discharge: 0 # These Unstageable Pressure Ulcers(Slough) Present on Admit: 0 # Unstageable Pressure Ulcers (Deep Tissue Injury)-Discharge: 0 # These Unstageable Pressure Ulcers (DTI) Present on Admit: 0
[2018-06-27] MEDS: LEVOTHYROXINE 112 MCG TAB PO SCH (05:50)
[2018-06-27 05:54] VITALS: BP 121/64
[2018-06-27] MEDS: INSULIN LISPRO 100 UNIT/ML SC SCH ×2 (07:44→12:21)
[2018-06-27] MEDS: CHOLECALCIFEROL VIT D3 2,000 UNITS TAB/CAP PO SCH (08:25)
[2018-06-27] MEDS: metFORMIN HCL 500 MG TAB PO SCH (08:26)
[2018-06-27] MEDS: ASPIRIN 81 MG CHEWABLE TAB PO SCH (08:26)
[2018-06-27] MEDS: ENOXAPARIN 40 MG/0.4 ML SYR SC SCH (08:27)
[2018-06-27] MEDS: ATORVASTATIN CALCIUM 40 MG TAB PO SCH (08:27)
[2018-06-27] MEDS: SENNOSIDES/DOCUSATE SODIUM TAB PO SCH (08:27)
== END 2018-06-27 14:00 | disposition home health service (06) | DRG 559 ==
LOC: F3E 06-21 20:57
PROVIDERS: ADMIT Internal Medicine Hospice and Palliative Medicine; ATTEND Internal Medicine Hospice and Palliative Medicine
DX: S72.002D Fracture of unspecified part of neck of left femur, subsequent encounter for closed fracture with routine healing (principal); I63.232 Cerebral infarction due to unspecified occlusion or stenosis of left carotid arteries; L02.213 Cutaneous abscess of chest wall; E11.9 Type 2 diabetes mellitus without complications; E03.9 Hypothyroidism, unspecified; M81.0 Age-related osteoporosis without current pathological fracture; W19.XXXD Unspecified fall, subsequent encounter
CPT/HCPCS: 97110-GO; 97110-GP; 97116-GP; 97161-GP; 97166-GO; 97530-GO; 97530-GP; 97535-GO; G0515-GO; J1650; J1815